=== PATIENT | female | born 1935 | race Caucasian/White ===

== ENCOUNTER → 2016-10-18 | Outpatient (CLI) | payer MEDICARE, BC, OTHER ==
[~2016-10-18] VITALS: Ht 160 cm; Wt 67.1 kg
[~2016-10-18] MED LIST: ATOR1TAB21 PO; BREO1INH3 INH; BYST10TA2 PO; CALC600T21 PO; ECOT81TA5 PO; FISH100049 PO; LIDOCAINE 2% INJ 100 MG/5 ML SDV (FOR ANES.) As Ordered ONE; NS 1,000 ML IV SCH; OSTETAB4 PO; PROPOFOL 500 MG/50 ML VIAL As Ordered ONE; SOMA350T PO; VITA2000 PO
--- NOTE | 2016-10-18 14:14 | ROOR ---
Patient Name: Earline Pulido Procedure Date: 10/18/2016 1:41 PM Date of : 1935 Age: 81 Room: [facility] Gender: Female Note Status: Finalized Procedure: Colonoscopy to Cecum + Cold Snare Polypectomies Indications: High risk colon cancer surveillance: Personal history of colonic polyps, Last colonoscopy: 2013 Providers: Trent Carbajal MD Referring MD: LUPE PERRY JR, MD Requesting Provider: Medicines: Monitored Anesthesia Care Complications: No immediate complications. Procedure: Pre-Anesthesia Assessment: - The heart rate, respiratory rate, oxygen saturations, blood pressure, adequacy of pulmonary ventilation, and response to care were monitored throughout the procedure. The Colonoscope was introduced through the anus and advanced to the cecum, identified by appendiceal orifice and ileocecal valve. The colonoscopy was performed without difficulty. The patient tolerated the procedure well. The quality of the bowel preparation was excellent. Findings: The perianal and digital rectal examinations were normal. Non-bleeding internal hemorrhoids were found during retroflexion. The hemorrhoids were small and Grade I (internal hemorrhoids that do not prolapse). Multiple small and large-mouthed diverticula were found in the recto-sigmoid colon, sigmoid colon and descending colon. A small polyp was found at 60 cm proximal to the anus. The polyp was sessile. The polyp was removed with a cold snare. Resection and retrieval were complete. A small polyp was found in the mid ascending colon. The polyp was sessile. The polyp was removed with a cold snare. Resection and retrieval were complete. Two sessile polyps were found in the proximal transverse colon. The polyps were small in size. These polyps were removed with a cold snare. Resection and retrieval were complete. The exam was otherwise without abnormality on direct and retroflexion views. Impression: - Non-bleeding internal hemorrhoids. - Diverticulosis in the recto-sigmoid colon, in the sigmoid colon and in the descending colon. - One small polyp at 60 cm proximal to the anus, removed with a cold snare. Resected and retrieved. - One small polyp in the mid ascending colon, removed with a cold snare. Resected and retrieved. - Two small polyps in the proximal transverse colon, removed with a cold snare. Resected and retrieved. - The examination was otherwise normal on direct and retroflexion views. - The exam was otherwise normal to the cecum. Recommendation: - Patient has a contact number available for emergencies. The signs and symptoms of potential delayed complications were discussed with the patient. Return to normal activities tomorrow. Written discharge instructions were provided to the patient. - High fiber diet. - Discharge patient to home. - Continue present medications. - Await pathology results. - Repeat colonoscopy for symptoms only. - Check Portal Online for Path Results.([email or web address]) - Return to referring physician. - The findings and recommendations were discussed with the patient's family. Trent Carbajal MD Trent Carbajal MD 10/18/2016 2:14:14 PM This report has been signed electronically. Number of Addenda: 0 Note Initiated On: 10/18/2016 1:41 PM Estimated Blood Loss: Estimated blood loss: none.
[2016-10-18 14:35] VITALS: BP 163/70
== END | disposition home or self-care (01) ==
LOC: M OPP 12:38
PROVIDERS: ATTEND Internal Medicine Gastroenterology
DX: Z12.11 Encounter for screening for malignant neoplasm of colon (principal); Z80.0 Family history of malignant neoplasm of digestive organs; K64.0 First degree hemorrhoids; K57.30 Diverticulosis of large intestine without perforation or abscess without bleeding; D12.4 Benign neoplasm of descending colon; D12.2 Benign neoplasm of ascending colon; D12.3 Benign neoplasm of transverse colon; I10 Essential (primary) hypertension; E78.5 Hyperlipidemia, unspecified; M19.90 Unspecified osteoarthritis, unspecified site; J45.909 Unspecified asthma, uncomplicated; Z87.891 Personal history of nicotine dependence; Z79.899 Other long term (current) drug therapy; Z88.8 Allergy status to other drugs, medicaments and biological substances; Z88.2 Allergy status to sulfonamides

== ENCOUNTER → 2016-10-31 | Outpatient (REF) | payer MEDICARE, OTHER ==
[~2016-10-31] MED LIST changes: -LIDOCAINE 2% INJ 100 MG/5 ML SDV (FOR ANES.) As Ordered ONE; -NS 1,000 ML IV SCH; -PROPOFOL 500 MG/50 ML VIAL As Ordered ONE
== END ==
LOC: M SFHCPLAZ 11:52
PROVIDERS: ATTEND Dermatology
DX: C44.41 Basal cell carcinoma of skin of scalp and neck (principal)
CPT/HCPCS: 11100; 88305; G0463

== ENCOUNTER → 2017-08-21 | Outpatient (CLI) | payer MEDICARE, BC, OTHER | LOC: M SMT 10:42 | DX: J45.30 Mild persistent asthma, uncomplicated (principal); R09.02 Hypoxemia | CPT/HCPCS: 71046 ==

== ENCOUNTER → 2017-08-29 | Outpatient (CLI) | payer MEDICARE, BC, OTHER | LOC: M WHC 09:16 | DX: Z12.31 Encounter for screening mammogram for malignant neoplasm of breast (principal); Z01.419 Encounter for gynecological examination (general) (routine) without abnormal findings (principal); R92.8 Other abnormal and inconclusive findings on diagnostic imaging of breast; Z80.41 Family history of malignant neoplasm of ovary | CPT/HCPCS: 76830 ==

== ENCOUNTER → 2017-09-03 | Outpatient (CLI) | payer MEDICARE, BC, OTHER | LOC: M RAD 15:58 | DX: N63.20 Unspecified lump in the left breast, unspecified quadrant (principal) | CPT/HCPCS: 77065 ==

== ENCOUNTER → 2017-09-05 | Outpatient (REF) | payer MEDICARE, OTHER | LOC: M LAB REF 17:51 | DX: C50.919 Malignant neoplasm of unspecified site of unspecified female breast (principal) | CPT/HCPCS: 88305 ==

== ENCOUNTER → 2017-09-17 | Outpatient (REF) | payer MEDICARE, OTHER ==
[2017-09-19 00:06] LABS: CA 27.29 13.3 U/mL (0.0-38.6)
== END ==
LOC: M LAB REF 13:32
DX: C50.919 Malignant neoplasm of unspecified site of unspecified female breast (principal)
CPT/HCPCS: 82378

== ENCOUNTER 2017-09-21 07:38 | Day surgery (SDC) | payer MEDICARE, BC, OTHER ==
[2017-09-21] MEDS: LIDOCAINE 5% (LIDODERM) PATCH TD (07:45)
[2017-09-21] MEDS: LIDOCAINE 1% SDV 5 ML VIAL SQ (07:45)
[2017-09-21] MEDS: LR 1,000 ML IV ×2 (10:30→15:15)
[2017-09-21] MEDS ORDERED: ONDANSETRON 4MG/2ML VIAL (J2405) As Ordered (10:48)
[2017-09-21] MEDS ORDERED: dexameTHASONE 4 MG/ML 1ML VIAL (J1100) As Ordered (10:48)
[2017-09-21] MEDS ORDERED: fentaNYL 250 MCG/5 ML INJECTION (J3010) As Ordered (10:48)
[2017-09-21] MEDS ORDERED: PROPOFOL 200 MG/20 ML VIAL As Ordered (10:48)
[2017-09-21] MEDS ORDERED: ROCURONIUM BROMIDE 50 MG/5 ML VIAL As Ordered (10:48)
[2017-09-21] MEDS ORDERED: LIDOCAINE 2% INJ 100 MG/5 ML SDV (FOR ANES.) As Ordered (10:48)
[2017-09-21] MEDS ORDERED: MIDAZOLAM INJ 2 MG/2 ML VIAL (J2250) As Ordered (10:49)
[2017-09-21] MEDS: METHYLENE BLUE 0.5% (5MG/ML) 10 ML AMP (PROVAYBLUE)(Q9968 PER 1MG) As Ordered (11:25)
[2017-09-21] MEDS ORDERED: ePHEDrine SULFATE 25 MG/5 ML(5MG/ML) SYRINGE As Ordered (11:53)
[2017-09-21] MEDS ORDERED: HYDROmorphone HCL 2 MG/ML 1ML VIAL (J1170) As Ordered (12:47)
[2017-09-21] MEDS ORDERED: GLYCOPYRROLATE INJ 0.2 MG/ML 2 ML VIAL As Ordered (12:54)
[2017-09-21] MEDS ORDERED: NEOSTIGMINE 10 MG/10 ML VIAL (J2710) As Ordered (12:54)
[2017-09-21] MEDS: BUPIVACAINE HCL 0.25% 30 ML VIAL As Ordered (14:20)
[2017-09-21] MEDS ORDERED: ONDANSETRON 4MG/2ML VIAL (J2405) IV (15:15)
[2017-09-21] MEDS ORDERED: fentaNYL 100 MCG/2 ML INJECTION (J3010) IV (15:15)
[2017-09-21] MEDS ORDERED: PERCOCET 5MG/325MG TAB PO (15:15)
[2017-09-21] MEDS ORDERED: HYDROmorphone HCL 1 MG/ML SYRINGE (J1170) IV (15:15)
[2017-09-21] MEDS ORDERED: PHENYLephrine HCL 500 MCG/5 ML (100MCG/ML) SYRINGE (J2370) As Ordered (17:49)
[2017-09-21] MEDS: ATORVASTATIN 20 MG TAB PO (20:37)
[2017-09-21] MEDS: NORCO, ANEXSIA 5/325MG TABLET (HYDROcodone/ACETAMINOPHEN) PO (20:37)
[2017-09-22] MEDS: NEBIVOLOL 5 MG TAB (BYSTOLIC) PO (09:25)
[2017-09-22] MEDS: ACETAMINOPHEN TAB 650MG DOSE (2X325MG) PO (11:12)
[2017-09-22] MEDS: ATORVASTATIN 20 MG TAB PO (20:06)
== END 2017-09-22 20:47 | disposition home or self-care (01) ==
LOC: M SDC 07:38 → M MSPAV 17:30
DX: C50.312 Malignant neoplasm of lower-inner quadrant of left female breast (principal); C77.3 Secondary and unspecified malignant neoplasm of axilla and upper limb lymph nodes; I10 Essential (primary) hypertension; E78.5 Hyperlipidemia, unspecified; J45.909 Unspecified asthma, uncomplicated; R01.1 Cardiac murmur, unspecified; R23.3 Spontaneous ecchymoses; M12.9 Arthropathy, unspecified; R29.898 Other symptoms and signs involving the musculoskeletal system; J44.9 Chronic obstructive pulmonary disease, unspecified; Z88.2 Allergy status to sulfonamides; Z88.8 Allergy status to other drugs, medicaments and biological substances; Z79.899 Other long term (current) drug therapy; Z79.82 Long term (current) use of aspirin; Z85.828 Personal history of other malignant neoplasm of skin; Z78.0 Asymptomatic menopausal state; Z96.1 Presence of intraocular lens; Z87.891 Personal history of nicotine dependence
CPT/HCPCS: 19301

== ENCOUNTER 2017-10-02 02:34 | Emergency (ER) | payer MEDICARE, BC, OTHER ==
[2017-10-02] MEDS: diphenhydrAMINE 50 MG CAP PO (03:56)
[2017-10-02] MEDS: predniSONE 20 MG TAB PO (03:57)
== END 2017-10-02 04:08 | disposition home or self-care (01) ==
LOC: M ED 02:34
DX: R21 Rash and other nonspecific skin eruption (principal); T50.995A Adverse effect of other drugs, medicaments and biological substances, initial encounter; X58.XXXA Exposure to other specified factors, initial encounter; Y92.89 Other specified places as the place of occurrence of the external cause; I10 Essential (primary) hypertension; E78.5 Hyperlipidemia, unspecified; Z85.3 Personal history of malignant neoplasm of breast; Z79.899 Other long term (current) drug therapy; Z79.82 Long term (current) use of aspirin; Z79.51 Long term (current) use of inhaled steroids; Z88.2 Allergy status to sulfonamides; Z88.8 Allergy status to other drugs, medicaments and biological substances
CPT/HCPCS: 99283

== ENCOUNTER → 2017-10-03 | Outpatient (CLI) | payer MEDICARE, BC, OTHER | LOC: M PLARAD 10:48 | DX: C50.812 Malignant neoplasm of overlapping sites of left female breast (principal) | CPT/HCPCS: 78815 ==

== ENCOUNTER 2017-10-04 10:14 | Emergency (ER) | payer MEDICARE, BC, OTHER ==
[2017-10-04] MEDS: FAMOTIDINE 20 MG TAB PO (11:06)
[2017-10-04] MEDS: GI COCKTAIL 50ML BTL(HYOSCYAMINE/MAALOX/LIDOCAINE VISCOUS)(1:3:1) PO (11:21)
== END 2017-10-04 11:36 | disposition home or self-care (01) ==
LOC: M ED 10:14
DX: T78.40XA Allergy, unspecified, initial encounter (principal); L50.9 Urticaria, unspecified; I10 Essential (primary) hypertension; J44.9 Chronic obstructive pulmonary disease, unspecified; Z98.890 Other specified postprocedural states; Z79.82 Long term (current) use of aspirin; Z79.899 Other long term (current) drug therapy; Z88.8 Allergy status to other drugs, medicaments and biological substances; Z88.2 Allergy status to sulfonamides
CPT/HCPCS: 99283

== ENCOUNTER → 2017-10-09 | Outpatient (CLI) | payer MEDICARE, BC, OTHER | LOC: M ONCR 14:15 | DX: C50.912 Malignant neoplasm of unspecified site of left female breast (principal) | CPT/HCPCS: G0463 ==

== ENCOUNTER 2017-10-18 09:59 | Outpatient (RCR) | payer MEDICARE, BC, OTHER | END 2017-11-12 | LOC: M ONCR 09:59 | DX: C50.312 Malignant neoplasm of lower-inner quadrant of left female breast (principal) | CPT/HCPCS: 77300 ==

== ENCOUNTER → 2017-11-05 | Outpatient (CLI) | payer MEDICARE, BC, OTHER ==
[2017-11-05 09:23] LABS: HEMATOCRIT 43.4 % (36.0-47.0); HEMOGLOBIN 13.3 g/dl (12.0-15.5); MEAN CORPUSCULAR HGB CONC 30.6 g/dl (32.0-36.5); PLATELET COUNT, AUTOMATED 185 10^3/uL (150-450); RED BLOOD COUNT 4.43 10^6/uL (4.00-5.40); RED CELL DISTRIBUTION WIDTH 14.9 % (11.5-14.5); WHITE BLOOD COUNT 8.3 10^3/uL (4.0-10.0)
== END ==
LOC: M LAB 09:01
DX: C50.919 Malignant neoplasm of unspecified site of unspecified female breast (principal)
CPT/HCPCS: 85027

== ENCOUNTER 2017-11-13 09:13 | Outpatient (RCR) | payer MEDICARE, BC, OTHER | END 2017-12-13 | LOC: M ONCR 09:13 | DX: C50.312 Malignant neoplasm of lower-inner quadrant of left female breast (principal) | CPT/HCPCS: 77300 ==

== ENCOUNTER → 2018-02-20 | Outpatient (CLI) | payer MEDICARE, BC, OTHER | LOC: M ONCR 15:04 | DX: C50.312 Malignant neoplasm of lower-inner quadrant of left female breast (principal) | CPT/HCPCS: G0463 ==

== ENCOUNTER → 2018-08-28 | Outpatient (CLI) | payer MEDICARE, BC, OTHER ==
[~2018-08-28] MED LIST changes: +ANAS1TAB2 PO; +BENA25CA4 PO; -CALC600T21 PO; +CALC600T60 PO; +NORC1TAB4 PO; +PEPC1TAB5 PO; +PRED20TA PO; +TAMO20TA8 PO; +TIZA2CAP PO; +VITA400C67 PO
--- NOTE | 2018-08-31 10:21 | RADONC ---
RADIATION ONCOLOGY FOLLOWUP NOTE DATE: 08/28/2018 CHART NUMBER: [id number] DIAGNOSIS: Left breast cancer. STAGE: Stage I A, [id number]. ECOG performance status 0. FOLLOWUP NOTE: Mrs. 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 She presents today for routine followup visit after having completed her radiotherapy on 12/13/2017. She did well with the radiotherapy and returns today with no specific complaints. REVIEW OF SYSTEMS: She specifically denies nausea, vomiting, coughing, sputum production or hemoptysis. Her energy level is such that she is able to maintain most day-to-day activities without any alteration of her lifestyle. She denies any skin irritation for chest pain. She also denies headaches, fevers, chills, night sweats, diplopia, anxiety or depression, weight loss or visual disturbances. EXAMINATION FINDINGS: The skin within the irradiated volume shows no significant changes. The left chest area is palpated and is without palpable masses. There are no masses palpable in the right breast. Lymphatics: No palpable lymphadenopathy is appreciated. Lungs: Clear to auscultation percussion. Heart: Regular without murmurs. Abdomen: Without evidence of hepatomegaly, masses, deep abdominal tenderness. Extremities: Without cyanosis, clubbing or edema. Neurologic: Examination grossly physiologic. IMPRESSION: Clinically FRANSISCO. PLAN: Return to clinic in approximately 6 months, and she was advised to return to her referring physicians for her already scheduled mammograms and followup visits.
== END ==
LOC: M ONCR 14:22
PROVIDERS: ATTEND Radiology Radiation Oncology
DX: Z08 Encounter for follow-up examination after completed treatment for malignant neoplasm (principal); Z85.3 Personal history of malignant neoplasm of breast; Z92.3 Personal history of irradiation

== ENCOUNTER → 2018-08-30 | Outpatient (CLI) | payer MEDICARE, BC, OTHER ==
--- NOTE | 2018-08-30 12:42 | REPMRS ---
Patient History The patient states she had a clinical breast exam in 09/03 Patient is postmenopausal, has history of cancer in the left breast at age 82, has history of skin cancer at age 64, had previous chemotherapy at age 2, and is nulliparous. Family history of ovarian cancer in sister, breast cancer under age 50 in niece, prostate cancer in brother, colorectal cancer at age 50 or over in niece. Malignant ultrasound-guided core biopsy of the left breast, September 05, 2017. Radiation therapy of the left breast, 2018. 3 benign cyst aspirations of the left breast. 3D TOMOSYNTHESIS WAS PERFORMED. Digital Woman Screen Mammo: August 30, 2018 - Exam #: [id number] Bilateral CC and MLO view(s) were taken. Technologist: Ana Kuo, Technologist Prior study comparison: September 03, 2017, left breast digital mammo diagnostic unilateral, performed at [facility]. August 29, 2017, digital woman screen mammo performed at [facility]. FINDINGS: The breast tissue is heterogeneously dense. This may lower the sensitivity of mammography. There has been no change in the appearance of the mammogram from the prior studies. There is a moderate amount of residual fibroglandular tissue which is fairly symmetric. There is no interval development of dominant mass, areas of architectural distortion, or clustered microcalcification typical of malignancy. Assessment: BI-RADS/ACR category 1 mammogram. Negative Mammogram. Recommendation Routine screening mammogram in 1 year (for women over age 40). This mammogram was interpreted with the aid of an FDA-approved computer-aided dectection system. Electronically Signed By: Michael Coyne MD 08/30/18 [id number]
== END ==
LOC: M WHC 10:12
PROVIDERS: ATTEND Nurse Practitioner Women's Health
DX: Z01.419 Encounter for gynecological examination (general) (routine) without abnormal findings (principal); Z12.31 Encounter for screening mammogram for malignant neoplasm of breast; Z78.0 Asymptomatic menopausal state; Z85.3 Personal history of malignant neoplasm of breast; Z92.3 Personal history of irradiation; Z80.41 Family history of malignant neoplasm of ovary; Z90.12 Acquired absence of left breast and nipple
CPT/HCPCS: 77063; 77067; G0101

== ENCOUNTER → 2019-04-02 | Outpatient (CLI) | payer MEDICARE, BC, OTHER ==
[~2019-04-02] MED LIST changes: -NORC1TAB4 PO; +NORC1TAB7 PO
--- NOTE | 2019-04-03 11:01 | RADONC ---
RADIATION ONCOLOGY FOLLOWUP NOTE DATE: 04/02/2019 CHART #: [id number] DIAGNOSIS: Left breast cancer. STAGE: I A, [id number]. ECOG PERFORMANCE STATUS: 0. FOLLOWUP NOTE: Ms. 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 The patient presents today reporting that she is doing quite well with no complaints at this time related to her radiation therapy or disease. She has no breast or bone pain. REVIEW OF SYSTEMS: The patient's review of systems is noncontributory. Denies nausea, vomiting, fevers, chills, night sweats, diplopia, headaches, anxiety or depression, anorexia, weight loss, visual disturbances, chest pain, urinary or bowel difficulties, bone pain, or neurological problems. PHYSICAL EXAMINATION: The patient is a well-developed, well-nourished female in no acute distress. HEENT exam is normocephalic, atraumatic. Extraocular movements are intact. There is no palpable cervical, supraclavicular, infraclavicular, axillary, or inguinal lymphadenopathy present. Lungs are clear to auscultation and percussion. Heart has a regular rate and rhythm. Abdomen is benign with no hepatosplenomegaly, masses, or tenderness. Breast examination reveals no masses or discharge bilaterally. Skeletal examination reveals no tenderness to pressure or percussion of the bony skeleton. Extremities reveal no clubbing, cyanosis, or edema. Neurologic exam is grossly intact, as is the remainder of the physical examination. ASSESSMENT: The patient is clinically FRANSISCO at this time. She is being followed and managed closely by her medical oncologist and other physicians and is therefore being discharged from our followup except on a p.r.n. basis. cc: Frantz Mahoney Jr, MD Robert Kimball, MD Sara McGee, MD
== END ==
LOC: M ONCR 08:48
PROVIDERS: ATTEND Radiology Radiation Oncology
DX: C50.312 Malignant neoplasm of lower-inner quadrant of left female breast (principal)

== ENCOUNTER → 2019-08-11 | Outpatient (CLI) | payer MEDICARE, BC, OTHER ==
[~2019-08-11] MED LIST changes: +ASPI325T57 PO; +MAXI1000 PO
--- NOTE | 2019-08-11 17:07 | REP ---
PA and lateral chest: Comparison is 08/21/2017. The larger left upper lobe infiltrate on the comparison study has resolved. There are no focal infiltrates on the current study. There are no pleural effusions. There is cardiomegaly, unchanged. There is diffuse interstitial coarsening, unchanged, compatible with chronic lung disease. The rona and mediastinum are unremarkable. There is a left shoulder arthroplasty, unchanged. Impression: There are no acute cardiopulmonary findings. There is chronic cardiomegaly and there is chronic interstitial coarsening. The previous left upper lobe infiltrate has resolved. Electronically Signed by Michael Jensen MD 08/11/2019 04:57 P
== END ==
LOC: M WUC 14:08
PROVIDERS: ATTEND Internal Medicine
DX: R50.9 Fever, unspecified (principal); R05 Cough; I51.7 Cardiomegaly; Z96.612 Presence of left artificial shoulder joint; J98.4 Other disorders of lung

== ENCOUNTER 2019-08-14 11:09 | Inpatient (IN) | payer MEDICARE, BC, OTHER ==
[~2019-08-14] VITALS: Ht 160 cm; Wt 63.8 kg
[2019-08-14] MEDS ORDERED: CIPR-249 PO (11:38)
--- NOTE | 2019-08-14 11:58 | REP ---
Portable chest, 11:29 a.m., single AP view with the patient upright: Comparison is 08/11/2019. The previous left upper lobe infiltrate has resolved. There is new opacification of the right costophrenic angle compatible with effusion/infiltrate/combination. Left lung is clear. Cardiac size is enlarged, unchanged. The rona, mediastinum, and skeletal structures are unremarkable except for a left shoulder arthroplasty, unchanged. Impression: New opacification of the right costophrenic angle. The previous right upper lobe infiltrate has resolved. Electronically Signed by Michael Jensen MD 08/14/2019 11:50 A
[2019-08-14 12:00] LABS: VENOUS BASE EXCESS 12.7 (-2.0-2.0); VENOUS HCO3 43.5 MEQ/L (23.0-27.0); VENOUS O2 SATURATION 48.8 % (60.0-80.0); VENOUS PARTIAL PRESSURE CO2 89.4 mmHg (38.0-50.0); VENOUS PARTIAL PRESSURE O2 25.7 mmHg (30.0-50.0); VENOUS PH 7.305 UNITS (7.330-7.430); VENOUS STANDARD HCO3 35.1 MEQ/L; VENOUS TOTAL CO2 46.2 MEQ/L (24.0-28.0)
[2019-08-14 12:09] LABS: BASO % 0.2 % (0.0-1.0); EOS % 0.1 % (0.0-3.0); HEMATOCRIT 46.9 % (36.0-47.0); HEMOGLOBIN 13.8 g/dl (12.0-15.5); LYMPH % 9.9 % (24.0-44.0); MEAN CORPUSCULAR HEMOGLOBIN 31.2 pg (27.0-33.0); MEAN CORPUSCULAR HGB CONC 29.4 g/dl (32.0-36.5); MEAN CORPUSCULAR VOLUME 105.9 fl (80.0-96.0); MONO # 1.1 10^3/uL (0.0-0.8); MONO % 10.8 % (0.0-5.0); NEUTROPHILS # 7.8 10^3/uL (1.5-8.5); NEUTROPHILS % 77.7 % (36.0-66.0); PLATELET COUNT, AUTOMATED 171 10^3/uL (150-450); RED BLOOD COUNT 4.43 10^6/uL (4.00-5.40)
[2019-08-14] MEDS ORDERED: cefTRIAXone SOD 2 GM in D5W MINI-BAG PLUS 50 ML IV ONE (12:15)
[2019-08-14 12:24] LABS: INR 1.04; PROTHROMBIN TIME 13.3 SECONDS (11.8-14.0)
[2019-08-14] MEDS ORDERED: TYLE650T38 PO (12:24)
[2019-08-14] MEDS ORDERED: PROAAER10 INH (12:24)
[2019-08-14] MEDS ORDERED: VITA100054 PO (12:24)
[2019-08-14 12:48] LABS: ALBUMIN 2.9 GM/DL (3.2-5.2); ALT/SGPT 41 U/L (12-78); BILIRUBIN,DIRECT 0.2 MG/DL (0.0-0.2); BILIRUBIN,TOTAL 0.4 MG/DL (0.2-1.0); BLOOD UREA NITROGEN 29 MG/DL (7-18); CALCIUM LEVEL 8.7 MG/DL (8.8-10.2); CARBON DIOXIDE LEVEL 40 MEQ/L (21-32); CHLORIDE LEVEL 102 MEQ/L (98-107); CK-MB VALUE MASS < 1.0 NG/ML (<3.6); CPK CREATINE PHOSPHOKINASE 57 U/L (26-192); CREATININE FOR GFR 1.04 MG/DL (0.55-1.30); GLOMERULAR FILTRATION RATE 53.7 (>32); GLUCOSE, FASTING 91 MG/DL (70-100); MB/CK RELATIVE INDEX 1.75 (< OR =4); NT-PRO BNP 5042 PG/ML (<450); SODIUM LEVEL 143 MEQ/L (136-145); THYROXINE (T4) 7.3 UG/DL (4.5-12.0); TOTAL PROTEIN 6.1 GM/DL (6.4-8.2); TROPONIN I < 0.02 NG/ML (< 0.10)
[2019-08-14] MEDS ORDERED: methylPREDNISolone INJ 125 MG/2 ML VIAL (J2930) IV ONE (14:30)
[2019-08-14] MEDS: IPRATROPIUM 0.5MG/ALBUTEROL 2.5MG INH SOL UD 3ML (DUONEB)(J7620) NEB SCH ×3 (14:41→15:26)
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
[2019-08-14 15:00] VITALS: BP 133/78
[2019-08-14] MEDS ORDERED: ALBUTEROL SULFATE 2.5 MG/0.5 ML INH NEB SOLN NEB PRN (16:00)
[2019-08-14] MEDS: AZITHROMYCIN INJ 500 MG, VIAL MATE ADAPTER 1 EACH in D5W 250 ML IV SCH (16:40)
[2019-08-14] MEDS: IPRATROPIUM 0.5MG/ALBUTEROL 2.5MG INH SOL UD 3ML (DUONEB)(J7620) INH SCH ×2 (20:32→23:56)
[2019-08-14] MEDS: methylPREDNISolone INJ 125 MG/2 ML VIAL (J2930) IV SCH (21:34)
[2019-08-14] MEDS: HEPARIN SOD (PORCINE) 5000 UNITS/ML VIAL (J1644 PER 1000UNITS) SC SCH (21:35)
[2019-08-14 22:00] VITALS: BP 131/69
[2019-08-14 23:56] VITALS: O2SAT 96
[2019-08-15 02:58] VITALS: O2SAT 95
[2019-08-15] MEDS: IPRATROPIUM 0.5MG/ALBUTEROL 2.5MG INH SOL UD 3ML (DUONEB)(J7620) INH SCH ×5 (02:58→19:33)
[2019-08-15] MEDS: methylPREDNISolone INJ 125 MG/2 ML VIAL (J2930) IV SCH ×3 (05:39→21:10)
[2019-08-15 06:00] VITALS: BP 145/65
[2019-08-15 06:30] LABS: MEAN CORPUSCULAR HEMOGLOBIN 32.2 pg (27.0-33.0); PLATELET COUNT, AUTOMATED 146 10^3/uL (150-450); RED BLOOD COUNT 4.04 10^6/uL (4.00-5.40)
[2019-08-15 06:58] LABS: CALCIUM LEVEL 8.4 MG/DL (8.8-10.2); CREATININE FOR GFR 1.03 MG/DL (0.55-1.30); GLOMERULAR FILTRATION RATE 54.3 (>32); MAGNESIUM LEVEL 2.4 MG/DL (1.8-2.4); POTASSIUM SERUM 4.5 MEQ/L (3.5-5.1)
[2019-08-15] MEDS: HEPARIN SOD (PORCINE) 5000 UNITS/ML VIAL (J1644 PER 1000UNITS) SC SCH ×2 (08:42→21:11)
[2019-08-15] MEDS: SYMBICORT 160/4.5MCG INHALER 6GM INH SCH ×2 (12:36→19:33)
[2019-08-15] MEDS ORDERED: ACETAMINOPHEN 650MG ER TAB (TYLENOL ARTHRITIS) PO PRN (12:45)
--- NOTE | 2019-08-15 13:17 | ECGEPIP ---
[facility] - ED Test Date: 2019-08-14 Pat Name: TAURUS LAI Department: Room: - Gender: Female Abalone Sheller: : 1935 Requested By: Alexa Cedeño Order Number: [id number] Reading MD: Alexa Cedeño Measurements Intervals [place] Rate: 63 P: 73 DE: 146 QRS: 23 QRSD: 86 T: 24 QT: 383 QTc: 393 Interpretive Statements SINUS RHYTHM POSSIBLE RIGHT VENTRICULAR CONDUCTION DELAY NO PRIOR Electronically Signed on 08-15-2019 13:17:10 EST by Alexa Cedeño
[2019-08-15] MEDS: cefTRIAXone SOD 1 GM in D5W MINI-BAG PLUS 50 ML IV SCH (13:43)
[2019-08-15 14:00] VITALS: BP 136/72
[2019-08-15] MEDS: ASPIRIN 325 MG TAB PO SCH (15:00)
[2019-08-15] MEDS: VITAMIN D 1,000 INTERNATIONAL UNITS TABLET PO SCH (15:01)
[2019-08-15] MEDS: TAMOXIFEN CITRATE 10 MG TAB PO SCH (15:01)
--- NOTE | 2019-08-15 15:09 | IPNPDOC ---
Text Note Date of Service The patient was seen on 08/15/19. NOTE Subjective: Patient stated that she was feeling better today, her breathing i mproved. She still requires 3 oxygen via nasal cannula Objective: VITAL SIGNS: Please see below. GENERAL APPEARANCE: Well-nourished, well-developed, not in apparent distress HEENT: Normocephalic, atraumatic. Mucous members moist and pink CARDIOVASCULAR: Regular rate and rhythm. No murmurs, rubs or gallops. Radial pulses are intact. There is no lower extremity edema LUNGS: Diminished lung sounds ABDOMEN: Abdomen is soft and nontender. MUSCULOSKELETAL: Range of motion is intact in all 4 extremities NEUROLOGICAL: Cranial nerves II-12 are grossly intact. Speech is not dysarthric Assessment/Plan Patient is 83 years old female with past history of hypertension, hyperlipidemia, breast cancer presented hospital with increased shortness of breath. Patient stated that for past 7 days she has been having increased cough and increased shortness of breath on exertion. She stated that her sputum became yellowish. In emergency room patient was found to have acute hypoxemic respiratory failure with oxygenation of 73%, she's been placed on oxygen 3 L via nasal cannula. Problems (1) Pneumonia Community acquired pneumonia Azithromycin IV, ceftriaxone IV Incentive spirometry Steroids IV Inhalers (2) Acute hypoxemic respiratory failure Secondary to community acquired pneumonia On admission oxygen saturation 73% Continue oxygen treatment (3) Hypertension Continue home meds VS,Fishbone, I+O VS, Fishbone, I+O Laboratory Tests 08/15/19 06:05 08/15/19 06:06 Vital Signs Date Time Temp Pulse Resp B/P (MAP) Pulse Ox O2 Delivery O2 Flow Rate FiO2 08/15/19 14:00 98.0 80 20 136/72 (93) 90 Nasal Cannula 2.0 I&O- Last 24 Hours up to 6 AM 08/15/19 06:00 Intake Total 350 ml Output Total 400 ml Balance -50 ml FAITH AVILEZ DO Aug 15, 2019 15:09
[2019-08-15] MEDS: AZITHROMYCIN INJ 500 MG, VIAL MATE ADAPTER 1 EACH in D5W 250 ML IV SCH (15:54)
[2019-08-15] MEDS: NEBIVOLOL 5 MG TAB (BYSTOLIC) PO SCH (15:55)
[2019-08-15] MEDS: VITAMIN E 400 INTERNATIONAL UNITS CAP PO SCH (15:55)
[2019-08-15 19:35] VITALS: O2SAT 95
[2019-08-15] MEDS: ATORVASTATIN 20 MG TAB PO SCH (21:11)
[2019-08-15 22:00] VITALS: BP 135/52
[2019-08-16 00:41] VITALS: O2SAT 98
[2019-08-16] MEDS: IPRATROPIUM 0.5MG/ALBUTEROL 2.5MG INH SOL UD 3ML (DUONEB)(J7620) INH SCH ×7 (00:41→23:25)
[2019-08-16 03:26] VITALS: O2SAT 95
[2019-08-16] MEDS: methylPREDNISolone INJ 125 MG/2 ML VIAL (J2930) IV SCH (05:47)
[2019-08-16 06:00] VITALS: BP 137/56
[2019-08-16] MEDS: HEPARIN SOD (PORCINE) 5000 UNITS/ML VIAL (J1644 PER 1000UNITS) SC SCH ×2 (08:18→20:56)
[2019-08-16] MEDS: NEBIVOLOL 5 MG TAB (BYSTOLIC) PO SCH (08:19)
[2019-08-16] MEDS: TAMOXIFEN CITRATE 10 MG TAB PO SCH (08:19)
[2019-08-16] MEDS: ASPIRIN 325 MG TAB PO SCH (08:19)
[2019-08-16] MEDS: VITAMIN E 400 INTERNATIONAL UNITS CAP PO SCH (08:19)
[2019-08-16] MEDS: VITAMIN D 1,000 INTERNATIONAL UNITS TABLET PO SCH (08:19)
[2019-08-16] MEDS: SYMBICORT 160/4.5MCG INHALER 6GM INH SCH ×2 (09:00→20:08)
[2019-08-16 10:37] LABS: HEMATOCRIT 42.6 % (36.0-47.0); HEMOGLOBIN 13.3 g/dl (12.0-15.5); MEAN CORPUSCULAR HEMOGLOBIN 31.9 pg (27.0-33.0); MEAN CORPUSCULAR HGB CONC 31.2 g/dl (32.0-36.5); MEAN CORPUSCULAR VOLUME 102.2 fl (80.0-96.0); PLATELET COUNT, AUTOMATED 177 10^3/uL (150-450); RED BLOOD COUNT 4.17 10^6/uL (4.00-5.40); WHITE BLOOD COUNT 11.9 10^3/uL (4.0-10.0)
[2019-08-16 11:00] LABS: CALCIUM LEVEL 8.2 MG/DL (8.8-10.2); CREATININE FOR GFR 1.17 MG/DL (0.55-1.30); GLOMERULAR FILTRATION RATE 46.9 (>32); POTASSIUM SERUM 5.3 MEQ/L (3.5-5.1)
[2019-08-16] MEDS ORDERED: DEXTROSE 50% 50 ML SYRINGE IV PRN (11:15)
[2019-08-16] MEDS ORDERED: GLUCOSE 4 GM CHEW TABLET PO PRN (11:15)
[2019-08-16] MEDS ORDERED: GLUCAGON FOR INJ 1 MG VIAL (J1610) SC PRN (11:15)
[2019-08-16] MEDS ORDERED: SODIUM CHLORIDE 0.9% 1000ML IV SCH (11:30)
[2019-08-16] MEDS ORDERED: CALCIUM GLUCONATE 1,000 MG in D5W MINI-BAG PLUS 100 ML IV ONE (11:30)
[2019-08-16] MEDS ORDERED: FUROSEMIDE 20 MG/2 ML VIAL (J1940) IV ONE (11:30)
[2019-08-16] MEDS: HumaLOG INSULIN (NovoLOG) PER UNIT SC SCH ×3 (11:55→20:56)
[2019-08-16 12:13] LABS: CALCIUM LEVEL 8.5 MG/DL (8.8-10.2); CREATININE FOR GFR 1.14 MG/DL (0.55-1.30); GLOMERULAR FILTRATION RATE 48.3 (>32); POTASSIUM SERUM 4.6 MEQ/L (3.5-5.1)
[2019-08-16] MEDS: cefTRIAXone SOD 1 GM in D5W MINI-BAG PLUS 50 ML IV SCH (13:17)
[2019-08-16 14:00] VITALS: BP 132/60
--- NOTE | 2019-08-16 14:25 | IPNPDOC ---
Text Note Date of Service The patient was seen on 08/16/19. NOTE Subjective: Patient stated that she was feeling better today, her breathing im proved. No any acute events overnight Objective: VITAL SIGNS: Please see below. GENERAL APPEARANCE: Well-nourished, well-developed, not in apparent distress HEENT: Normocephalic, atraumatic. Mucous members moist and pink CARDIOVASCULAR: Regular rate and rhythm. No murmurs, rubs or gallops. Radial pulses are intact. There is no lower extremity edema LUNGS: Diminished lung sounds ABDOMEN: Abdomen is soft and nontender. MUSCULOSKELETAL: Range of motion is intact in all 4 extremities NEUROLOGICAL: Cranial nerves II-12 are grossly intact. Speech is not dysarthric Assessment/Plan Patient is 83 years old female with past history of hypertension, hyperlipidemia, breast cancer presented hospital with increased shortness of breath. Patient stated that for past 7 days she has been having increased cough and increased shortness of breath on exertion. She stated that her sputum became yellowish. In emergency room patient was found to have acute hypoxemic respiratory failure with oxygenation of 73%, she's been placed on oxygen 3 L via nasal cannula. Problems Pneumonia Community acquired pneumonia Azithromycin IV, ceftriaxone IV Incentive spirometry I changed steroids IV to by mouth Inhalers Acute hypoxemic respiratory failure Secondary to community acquired pneumonia On admission oxygen saturation 73% Continue oxygen treatment Hypertension Continue home meds Hyperglycemia Secondary to IV steroids Insulin sliding scale Hyperkalemia EKG Continue gluconate Furosemide IV VS,Fishbone, I+O VS, Fishbone, I+O Laboratory Tests 08/16/19 10:18 08/16/19 11:31 Vital Signs Date Time Temp Pulse Resp B/P (MAP) Pulse Ox O2 Delivery O2 Flow Rate FiO2 08/16/19 09:00 2.0 08/16/19 08:19 72 138/67 08/16/19 06:00 97.6 16 96 Nasal Cannula I&O- Last 24 Hours up to 6 AM 08/16/19 06:00 Intake Total 480 ml Output Total 1725 ml Balance -1245 ml FAITH AVILEZ DO Aug 16, 2019 14:25
[2019-08-16 16:28] LABS: CALCIUM LEVEL 8.4 MG/DL (8.8-10.2); CREATININE FOR GFR 1.27 MG/DL (0.55-1.30); GLOMERULAR FILTRATION RATE 42.7 (>32); POTASSIUM SERUM 4.2 MEQ/L (3.5-5.1)
[2019-08-16] MEDS: FUROSEMIDE 20 MG TAB PO SCH (16:36)
[2019-08-16] MEDS: AZITHROMYCIN INJ 500 MG, VIAL MATE ADAPTER 1 EACH in D5W 250 ML IV SCH (16:36)
[2019-08-16 20:24] LABS: CALCIUM LEVEL 8.4 MG/DL (8.8-10.2); CREATININE FOR GFR 1.5 MG/DL (0.55-1.30); GLOMERULAR FILTRATION RATE 35.2 (>32); POTASSIUM SERUM 3.9 MEQ/L (3.5-5.1)
[2019-08-16] MEDS: ATORVASTATIN 20 MG TAB PO SCH (20:55)
[2019-08-16 22:00] VITALS: BP 137/64
[2019-08-16 23:15] LABS: CALCIUM LEVEL 8.9 MG/DL (8.8-10.2); CREATININE FOR GFR 1.5 MG/DL (0.55-1.30); GLOMERULAR FILTRATION RATE 35.2 (>32)
[2019-08-17 03:14] LABS: CALCIUM LEVEL 8.1 MG/DL (8.8-10.2); CREATININE FOR GFR 1.31 MG/DL (0.55-1.30); GLOMERULAR FILTRATION RATE 41.2 (>32)
[2019-08-17] MEDS: IPRATROPIUM 0.5MG/ALBUTEROL 2.5MG INH SOL UD 3ML (DUONEB)(J7620) INH SCH ×5 (04:54→21:48)
[2019-08-17 06:00] VITALS: BP 139/65
[2019-08-17] MEDS: HumaLOG INSULIN (NovoLOG) PER UNIT SC SCH ×4 (07:30→20:31)
[2019-08-17] MEDS: SYMBICORT 160/4.5MCG INHALER 6GM INH SCH ×2 (07:48→21:00)
[2019-08-17 08:21] LABS: CALCIUM LEVEL 8.5 MG/DL (8.8-10.2); CREATININE FOR GFR 1.25 MG/DL (0.55-1.30); GLOMERULAR FILTRATION RATE 43.5 (>32); POTASSIUM SERUM 4.2 MEQ/L (3.5-5.1)
[2019-08-17 08:26] LABS: HEMATOCRIT 45.1 % (36.0-47.0); HEMOGLOBIN 13.9 g/dl (12.0-15.5); MEAN CORPUSCULAR HEMOGLOBIN 31.4 pg (27.0-33.0); MEAN CORPUSCULAR HGB CONC 30.8 g/dl (32.0-36.5); MEAN CORPUSCULAR VOLUME 101.8 fl (80.0-96.0); PLATELET COUNT, AUTOMATED 182 10^3/uL (150-450); RED BLOOD COUNT 4.43 10^6/uL (4.00-5.40); WHITE BLOOD COUNT 10.9 10^3/uL (4.0-10.0)
[2019-08-17] MEDS: VITAMIN D 1,000 INTERNATIONAL UNITS TABLET PO SCH (09:22)
[2019-08-17] MEDS: predniSONE 20 MG TAB PO SCH (09:22)
[2019-08-17] MEDS: ASPIRIN 325 MG TAB PO SCH (09:23)
[2019-08-17] MEDS: FUROSEMIDE 20 MG TAB PO SCH ×2 (09:23→16:56)
[2019-08-17] MEDS: VITAMIN E 400 INTERNATIONAL UNITS CAP PO SCH (09:23)
[2019-08-17] MEDS: NEBIVOLOL 5 MG TAB (BYSTOLIC) PO SCH (09:25)
[2019-08-17] MEDS: HEPARIN SOD (PORCINE) 5000 UNITS/ML VIAL (J1644 PER 1000UNITS) SC SCH ×2 (09:26→20:44)
[2019-08-17] MEDS: TAMOXIFEN CITRATE 10 MG TAB PO SCH (09:26)
[2019-08-17] MEDS: cefTRIAXone SOD 1 GM in D5W MINI-BAG PLUS 50 ML IV SCH (13:45)
--- NOTE | 2019-08-17 13:52 | IPNPDOC ---
Text Note Date of Service The patient was seen on 08/17/19. NOTE Subjective: Patient continues to improve, less oxygen requirements. In the mor julian she was able to breathe wo supplemental oxygen. No any acute events overnight Objective: VITAL SIGNS: Please see below. GENERAL APPEARANCE: Well-nourished, well-developed, not in apparent distress HEENT: Normocephalic, atraumatic. Mucous members moist and pink CARDIOVASCULAR: Regular rate and rhythm. No murmurs, rubs or gallops. Radial pulses are intact. There is no lower extremity edema LUNGS: Diminished lung sounds ABDOMEN: Abdomen is soft and nontender. MUSCULOSKELETAL: Range of motion is intact in all 4 extremities NEUROLOGICAL: Cranial nerves II-12 are grossly intact. Speech is not dysarthric Assessment/Plan Patient is 83 years old female with past history of hypertension, h yperlipidemia, breast cancer presented hospital with increased shortness of breath. Patient stated that for past 7 days she has been having increased cough and increased shortness of breath on exertion. She stated that her sputum became yellowish. In emergency room patient was found to have acute hypoxemic respiratory failure with oxygenation of 73%, she's been placed on oxygen 3 L via nasal cannula. Patient received treatment with antibiotics with positive effect. Await PT OT clearance. Problems Pneumonia Community acquired pneumonia Azithromycin IV, ceftriaxone IV Incentive spirometry I changed steroids IV to by mouth Inhalers Acute hypoxemic respiratory failure Resolved Secondary to community acquired pneumonia On admission oxygen saturation 73% Hypertension Continue home meds Hyperglycemia Secondary to IV steroids Insulin sliding scale Hyperkalemia Resolved VS,Fishbone, I+O VS, Fishbone, I+O Laboratory Tests 08/16/19 15:44 08/16/19 19:23 08/16/19 22:43 08/17/19 02:43 08/17/19 07:18 08/17/19 07:19 Vital Signs Date Time Temp Pulse Resp B/P (MAP) Pulse Ox O2 Delivery O2 Flow Rate FiO2 08/17/19 09:25 83 133/48 08/17/19 06:00 97.6 20 95 Nasal Cannula 2.0 I&O- Last 24 Hours up to 6 AM 08/17/19 06:00 Intake Total 1200 ml Output Total 3400 ml Balance -2200 ml FAITH AVILEZ DO Aug 17, 2019 13:52
[2019-08-17 14:00] VITALS: BP 159/61
[2019-08-17] MEDS: AZITHROMYCIN INJ 500 MG, VIAL MATE ADAPTER 1 EACH in D5W 250 ML IV SCH (15:08)
[2019-08-17] MEDS: ATORVASTATIN 20 MG TAB PO SCH (20:43)
[2019-08-17 22:00] VITALS: BP 130/94
[2019-08-18] MEDS: IPRATROPIUM 0.5MG/ALBUTEROL 2.5MG INH SOL UD 3ML (DUONEB)(J7620) INH SCH ×7 (00:12→23:27)
[2019-08-18 06:00] VITALS: BP 116/82
[2019-08-18] MEDS: HumaLOG INSULIN (NovoLOG) PER UNIT SC SCH ×4 (07:30→21:00)
[2019-08-18] MEDS: SYMBICORT 160/4.5MCG INHALER 6GM INH SCH ×2 (07:56→21:00)
[2019-08-18] MEDS: ASPIRIN 325 MG TAB PO SCH (08:58)
[2019-08-18] MEDS: predniSONE 20 MG TAB PO SCH (08:58)
[2019-08-18] MEDS: VITAMIN D 1,000 INTERNATIONAL UNITS TABLET PO SCH (08:59)
[2019-08-18] MEDS: NEBIVOLOL 5 MG TAB (BYSTOLIC) PO SCH (08:59)
[2019-08-18] MEDS: VITAMIN E 400 INTERNATIONAL UNITS CAP PO SCH (08:59)
[2019-08-18] MEDS: FUROSEMIDE 20 MG TAB PO SCH ×2 (08:59→16:51)
[2019-08-18] MEDS: HEPARIN SOD (PORCINE) 5000 UNITS/ML VIAL (J1644 PER 1000UNITS) SC SCH ×2 (09:00→21:50)
[2019-08-18] MEDS: TAMOXIFEN CITRATE 10 MG TAB PO SCH (09:00)
[2019-08-18] MEDS ORDERED: CETIRIZINE (ZyrTEC) 10 MG TAB PO ONE (10:00)
[2019-08-18] MEDS: guaiFENesin ER 600 MG TAB PO SCH ×2 (10:52→21:50)
[2019-08-18] MEDS: LevoFLOXacin 750 MG TABLET PO SCH (10:52)
--- NOTE | 2019-08-18 11:07 | IPN ---
DATE OF SERVICE: 08/18/2019 Patient complains of nasal congestion, feeling full, as well as some postnasal drip. She tries to cough, but it still dry and congested. No fevers or chills overnight. Shortness of breath is at baseline. Still complains of weakness. Needs 2-3 more days of physical therapy. Vital signs: Temperature 98.7, pulse 74, respiratory rate 18, blood pressure 124/79, 97% on 2 liters nasal cannula. General: Awake, alert, and oriented times three, answering questions appropriately. No use of respiratory accessory muscle. Currently with 2 liters of oxygen. No jugular venous distention (JVD). No thyromegaly. Moist mucous membranes. Lungs: Diminished with bibasal crackles. Heart: S1, S2, sinus rhythm. No murmurs, rubs, or gallops. Abdomen: Soft, nontender, nondistended. Extremities: No cyanosis, clubbing, or pitting edema. White count 9.9, hemoglobin 13, hematocrit 45, platelet count 182, sodium 141, potassium 4.2, chloride 94, bicarbonate 42, BUN 28, creatinine 1.25, glucose 119. ASSESSMENT AND PLAN: This is a 83-year-old female who lives at home with hypertension, hyperlipidemia, and cancer who presented with shortness of breath found to have a community acquired pneumonia with acute hypoxia with oxygen saturation of 73% currently on 2 liters of oxygen. Chest x-ray shows opacification at the right costophrenic angle. IMPRESSION: 1. Community acquired pneumonia. Currently on ceftriaxone, azithromycin and will be transitioned to oral Levaquin renal dosing. 2. Hypertension. Currently with stable blood pressure 116 to 124 systolic. On Bystolic 10 daily. 3. History of breast cancer. On chronic Tamoxifen. Currently on heparin subcutaneous. 4. Dyslipidemia. On chronic Lipitor. 5. Allergic rhinitis. Start on Zyrtec. 6. Postinfectious cough. Mucinex for comfort. MTDD
[2019-08-18 14:00] VITALS: BP 124/97
[2019-08-18] MEDS: ATORVASTATIN 20 MG TAB PO SCH (21:50)
[2019-08-18 22:00] VITALS: BP 129/67
[2019-08-19] MEDS: IPRATROPIUM 0.5MG/ALBUTEROL 2.5MG INH SOL UD 3ML (DUONEB)(J7620) INH SCH ×6 (04:16→23:46)
[2019-08-19 06:00] VITALS: BP 142/76
[2019-08-19] MEDS: SYMBICORT 160/4.5MCG INHALER 6GM INH SCH ×2 (07:27→18:02)
[2019-08-19] MEDS: HumaLOG INSULIN (NovoLOG) PER UNIT SC SCH ×4 (07:30→20:45)
[2019-08-19] MEDS: VITAMIN E 400 INTERNATIONAL UNITS CAP PO SCH (08:15)
[2019-08-19] MEDS: FUROSEMIDE 20 MG TAB PO SCH (08:15)
[2019-08-19] MEDS: guaiFENesin ER 600 MG TAB PO SCH ×2 (08:15→20:46)
[2019-08-19] MEDS: NEBIVOLOL 5 MG TAB (BYSTOLIC) PO SCH (08:15)
[2019-08-19] MEDS: ASPIRIN 325 MG TAB PO SCH (08:15)
[2019-08-19] MEDS: VITAMIN D 1,000 INTERNATIONAL UNITS TABLET PO SCH (08:15)
[2019-08-19] MEDS: predniSONE 20 MG TAB PO SCH (08:16)
[2019-08-19] MEDS: TAMOXIFEN CITRATE 10 MG TAB PO SCH (08:16)
[2019-08-19] MEDS: CETIRIZINE (ZyrTEC) 10 MG TAB PO SCH (08:16)
[2019-08-19] MEDS: HEPARIN SOD (PORCINE) 5000 UNITS/ML VIAL (J1644 PER 1000UNITS) SC SCH ×2 (08:16→20:45)
[2019-08-19] MEDS ORDERED: FURO20TA2 PO (08:31)
[2019-08-19] MEDS ORDERED: LEVA750T7 PO (08:31)
[2019-08-19 09:15] LABS: BASO % 0.2 % (0.0-1.0); EOS # 0.1 10^3/uL (0.0-0.5); EOS % 0.7 % (0.0-3.0); HEMATOCRIT 47.4 % (36.0-47.0); HEMOGLOBIN 14.6 g/dl (12.0-15.5); LYMPH # 1.6 10^3/uL (1.5-5.0); LYMPH % 17.6 % (24.0-44.0); MEAN CORPUSCULAR HEMOGLOBIN 31.1 pg (27.0-33.0); MEAN CORPUSCULAR HGB CONC 30.8 g/dl (32.0-36.5); MEAN CORPUSCULAR VOLUME 101.1 fl (80.0-96.0); MONO # 0.9 10^3/uL (0.0-0.8); MONO % 9.9 % (0.0-5.0); NEUTROPHILS # 6.2 10^3/uL (1.5-8.5); NEUTROPHILS % 69.3 % (36.0-66.0); PLATELET COUNT, AUTOMATED 185 10^3/uL (150-450); RED BLOOD COUNT 4.69 10^6/uL (4.00-5.40); WHITE BLOOD COUNT 8.9 10^3/uL (4.0-10.0)
--- NOTE | 2019-08-19 09:16 | REP ---
Portable chest, 08:51 a.m., single AP view with the patient sitting: Comparison is the portable chest of 08/14/2019. The opacification in the right costophrenic angle on the prior study has resolved. Lung lemus are clear. Cardiac size is enlarged, unchanged. The rona and mediastinum are unremarkable. Left shoulder arthroplasty, unchanged. Impression: No acute cardiopulmonary findings. Electronically Signed by Michael Jensen MD 08/19/2019 09:07 A
[2019-08-19 09:53] LABS: BLOOD UREA NITROGEN 31 MG/DL (7-18); CALCIUM LEVEL 8.7 MG/DL (8.8-10.2); CARBON DIOXIDE LEVEL 41 MEQ/L (21-32); CHLORIDE LEVEL 92 MEQ/L (98-107); CK-MB VALUE MASS < 1.0 NG/ML (<3.6); CPK CREATINE PHOSPHOKINASE 57 U/L (26-192); CREATININE FOR GFR 1.47 MG/DL (0.55-1.30); GLOMERULAR FILTRATION RATE 36.1 (>32); GLUCOSE, FASTING 133 MG/DL (70-100); MB/CK RELATIVE INDEX 1.75 (< OR =4); NT-PRO BNP 577 PG/ML (<450); POTASSIUM SERUM 3.8 MEQ/L (3.5-5.1); SODIUM LEVEL 139 MEQ/L (136-145); TROPONIN I < 0.02 NG/ML (< 0.10)
--- NOTE | 2019-08-19 12:43 | IPN ---
DATE OF SERVICE: 08/19/2019 Patient continues to complain of generalized weakness and fatigue. Still with a cough which is nonproductive. She still feels hypoxic, although is 92-95% on room air. is worried about her being discharged due to increasing weakness and not back to baseline strength. Patient is awaiting clearance from physical therapy. She is afebrile. No chills. No nausea or vomiting, headache. No sore throat. VITAL SIGNS: Temperature 97.8, pulse 77, respiratory rate 18, blood pressure 142/76, 90% 2 liters nasal cannula. Generally, patient is awake, alert, oriented to person, place and time, answering questions appropriately. She has no use of accessory respiratory muscles. Able to speak in full sentences. No jugular venous distention (JVD). No thyromegaly. Lungs diminished with bilateral crackles. Heart: S1, S2, sinus rhythm. Abdomen is soft, nontender, nondistended. Extremities trace edema bilaterally. INPUT/OUTPUT: Input 930, output 1150, negative 220. Current weight is 66.1 kg. LABORATORY DATA: White count 6.9, hemoglobin 14, hematocrit 47, platelet count 185. Sodium 139, potassium 3.8, chloride 92, bicarbonate 41, BUN 31, creatinine 1.4, glucose of 133. Patient's baseline creatinine is 2.3. MICROBIOLOGY: Blood culture negative after 72 hours. CHEST X-RAY 08/19/2019: No acute cardiopulmonary findings. Lung lemus are clear. ASSESSMENT AND PLAN: This is an 83-year-old female, who lives at home her , with hypertension, hyperlipidemia, who has cancer on tamoxifen, presented with shortness of breath, found to have community-acquired pneumonia with acute hypoxia with oxygen saturation 73%, currently requiring 2 liters of oxygen. Chest x-ray shows opacification at the right costophrenic angle. IMPRESSION: 1. Acute hypoxia secondary to community-acquired pneumonia. Patient is currently on oral Levaquin to complete a full 7 day course from admission. 2. Acute kidney injury secondary to Lasix and overdiuresis. Change to daily dose of Lasix 20 mg daily. 3. History of breast cancer, on chronic tamoxifen, suspicious for possible pulmonary embolism (PE). Check V/Q scan. 4. Acute hypoxic respiratory failure requiring 2 liters of oxygen by nasal cannula most likely secondary to pneumonia. Rule out PE due to a history of breast cancer and current tamoxifen use increases hypercoagulable state. 5. Debility. Await physical therapy (PT) clearance. Continue with alternate level of care (ALC) status for now until patient is back to her normal strength. MTDD
--- NOTE | 2019-08-19 14:47 | REP ---
Radionuclide pulmonary ventilation / perfusion scan: The study is performed with 1.0 mCi of technetium 99m DTPA aerosol followed by 5.4 mCi of technetium 99m MAA intravenously. The patient is hypoxic and is on tamoxifen. There is precipitation radiotracer within the large airways on the ventilation phase, compatible with chronic lung disease. There are matched ventilation / perfusion defects. No mismatched defects are identified. Impression: Low probability of pulmonary embolus. Electronically Signed by Michael Jensen MD 08/19/2019 02:38 P
[2019-08-19] MEDS: ATORVASTATIN 20 MG TAB PO SCH (20:46)
[2019-08-19 23:46] VITALS: O2SAT 97
[2019-08-20 03:23] VITALS: O2SAT 98
[2019-08-20] MEDS: IPRATROPIUM 0.5MG/ALBUTEROL 2.5MG INH SOL UD 3ML (DUONEB)(J7620) INH SCH ×2 (03:23→07:56)
[2019-08-20] MEDS: LevoFLOXacin 750 MG TABLET PO SCH (05:45)
[2019-08-20 06:00] VITALS: BP 140/72
[2019-08-20] MEDS: HumaLOG INSULIN (NovoLOG) PER UNIT SC SCH (07:27)
[2019-08-20] MEDS: SYMBICORT 160/4.5MCG INHALER 6GM INH SCH (07:55)
[2019-08-20 09:48] VITALS: BP 140/72
[2019-08-20] MEDS: VITAMIN E 400 INTERNATIONAL UNITS CAP PO SCH (09:48)
[2019-08-20] MEDS: ASPIRIN 325 MG TAB PO SCH (09:48)
[2019-08-20] MEDS: guaiFENesin ER 600 MG TAB PO SCH (09:48)
[2019-08-20] MEDS: NEBIVOLOL 5 MG TAB (BYSTOLIC) PO SCH (09:48)
[2019-08-20] MEDS: CETIRIZINE (ZyrTEC) 10 MG TAB PO SCH (09:48)
[2019-08-20] MEDS: VITAMIN D 1,000 INTERNATIONAL UNITS TABLET PO SCH (09:48)
[2019-08-20] MEDS: HEPARIN SOD (PORCINE) 5000 UNITS/ML VIAL (J1644 PER 1000UNITS) SC SCH (09:49)
[2019-08-20] MEDS: TAMOXIFEN CITRATE 10 MG TAB PO SCH (09:49)
[2019-08-20 14:03] LABS: BODY FLUID CULTURE Not indicated. (.); LEGIONELLA ANTIGEN URINE Negative (Negative); ORGANISM ID Not indicated. (.); SPECIMEN SOURCE Urine (.); URINE STREP PNEUMONIAE ANTIGEN Negative (Negative)
--- NOTE | 2019-08-20 19:53 | DSES ---
DATE OF ADMISSION: 08/14/2019 DATE OF DISCHARGE: 08/20/2019 PRIMARY DISCHARGE DIAGNOSES: 1. Acute hypoxia secondary to community acquired pneumonia. 2. Community acquired pneumonia. 3. Acute kidney injury due to Lasix and overdiuresis. 4. History of breast cancer, on chronic Tamoxifen. 5. Pulmonary embolism has been ruled out. 6. History of hypertension. 7. History of hyperlipidemia. 8. History of breast cancer. 9. Chronic kidney disease stage III. DISCHARGE MEDICATIONS: - Lasix 200 mg daily - Levaquin 250 mg every 2 days - Tylenol 650 mg at night as needed for pain - albuterol two puffs inhaled four times a day - aspirin 325 mg daily - atorvastatin 20 mg at night - calcium carbonate 600 mg daily - vitamin D 1000 units daily - fluticasone - Breo Ellipta one puff inhaled daily - Bystolic 10 mg daily - Tamoxifen 20 mg daily - vitamin E 400 units daily DISCONTINUED MEDICATIONS: - Cipro 500 mg twice a day DISCHARGE INSTRUCTIONS: The patient is to have followup with her primary care provider within 7 days of hospital discharge. Return to the emergency room if fever, recurrent shortness of breath or recurrent cough. HISTORY OF PRESENT ILLNESS: This is an 83-year-old female who lives at home with her with a history of hypertension, hyperlipidemia, breast cancer on chronic Tamoxifen, presented to the emergency room with worsening shortness of breath and productive cough of white sputum. The patient was afebrile at 99.1 on arrival. She had a normal white count of 10. Chest x-ray on 08/14/2019 showed new opacification of the right costophrenic angle, previous right upper lobe infiltrate has resolved. The patient was admitted for acute hypoxia with oxygen saturation of 73% on room air. The patient was given nebulizer treatments, ceftriaxone and azithromycin, along with oral prednisone 40 mg. She was also kept on Lasix 20 mg twice a day. She was diuresed with net negative balance for the past 5 days. Admission weight was 66 kg and discharge weight was 63.3 kg. Electrocardiogram (EKG) on arrival in the emergency room showed right ventricular conduction delay, sinus rhythm, ventricular rate of 63. Cardiac markers were negative. The patient had symptomatic improvement and was discharged in stable condition after passing a home safety evaluation. PHYSICAL EXAMINATION: On discharge: Temperature 98, pulse 65, respiratory rate 18, blood pressure 140/72, 99% on 2 liters nasal cannula. GENERAL: The patient is awake, alert, oriented, answering questions appropriately. Anicteric sclerae. No jaundice. Able to speak in full sentences. No jugular venous distention (JVD), thyromegaly. THe patient has no cervical lymphadenopathy. No conversational dyspnea. The patient is able to speak fluently. Face is symmetric. LUNGS: Diminished with coarse rhonchi. Air entry is equal. HEART: S1, S2. Sinus rhythm. ABDOMEN: Soft, obese, nontender, nondistended. Positive bowel sounds times four quadrants. No rebound or guarding. EXTREMITIES: Positive 1+ pitting edema. IMAGING STUDIES: V/Q scan with low probability of pulmonary embolism. Chest x-ray on 08/14/2019 showed no opacification of the right costophrenic angle, previous right upper lobe infiltrate has resolved. Blood culture negative. Respiratory panel on 08/14/2019 was negative. LABORATORY DATA: On discharge: White count 8.9, hemoglobin 14, hematocrit 47, platelet count 185. Sodium 139, potassium 3.8, chloride 92, bicarbonate 41, BUN 31, creatinine 1.47, glucose of 133. Time spent on discharge: 30 minutes. MTDD
== END 2019-08-20 12:00 | disposition home health service (06) | DRG 193 ==
LOC: M ED 11:09 → M ED INP 14:25 → ENRESERVTM 14:42 → ENRESERVDT 14:42 → M MSPAV 15:13
PROVIDERS: ADMIT Internal Medicine; ATTEND General Practice
DX: J18.9 Pneumonia, unspecified organism (principal); J96.01 Acute respiratory failure with hypoxia; I26.99 Other pulmonary embolism without acute cor pulmonale; N17.9 Acute kidney failure, unspecified; I12.9 Hypertensive chronic kidney disease with stage 1 through stage 4 chronic kidney disease, or unspecified chronic kidney disease; E78.5 Hyperlipidemia, unspecified; N18.3 Chronic kidney disease, stage 3 (moderate); R73.9 Hyperglycemia, unspecified; E87.5 Hyperkalemia; Z79.899 Other long term (current) drug therapy; Z85.3 Personal history of malignant neoplasm of breast; Z79.82 Long term (current) use of aspirin; Z88.2 Allergy status to sulfonamides; Z88.8 Allergy status to other drugs, medicaments and biological substances; Z98.41 Cataract extraction status, right eye; Z98.42 Cataract extraction status, left eye; Z79.890 Hormone replacement therapy; Z85.828 Personal history of other malignant neoplasm of skin; J30.9 Allergic rhinitis, unspecified; Z72.3 Lack of physical exercise

== ENCOUNTER → 2019-09-02 | Outpatient (REF) | payer MEDICARE, BC, OTHER ==
[~2019-09-02] MED LIST changes: +CIPR-249 PO; +FURO20TA2 PO; +LEVA750T7 PO; +PROAAER10 INH; +TYLE650T38 PO; +VITA100054 PO
== END ==
LOC: M WHC 16:54
PROVIDERS: ATTEND Nurse Practitioner Women's Health
DX: Z12.4 Encounter for screening for malignant neoplasm of cervix (principal); N95.8 Other specified menopausal and perimenopausal disorders
CPT/HCPCS: 87624; G0123

== ENCOUNTER → 2019-09-02 | Outpatient (CLI) | payer MEDICARE, BC, OTHER ==
--- NOTE | 2019-09-02 10:54 | REP ---
Clinical: Pelvic pain with history of breast cancer. Tamoxifen use. Technique: Transabdominal pelvic ultrasound followed by transvaginal examination for better evaluation of the endometrium and adnexa. Findings: Bladder is collapsed. Heterogeneous anteverted uterus measures 5.1 x 2.2 x 2.9 cm. Endometrial complex is thickened to 8 mm and demonstrates cystic changes which may be related to tamoxifen use. The bilateral ovaries were not visualized on either transabdominal or transvaginal images. No pelvic fluid or adnexal mass lesion. Impression: Heterogeneous cystic changes to the endometrium measuring 8 mm thickness.
--- NOTE | 2019-09-02 13:20 | REPMRS ---
Patient History The patient states she had a clinical breast exam in December 2018. Patient is postmenopausal, has history of cancer in the left breast at age 82, has history of other cancer at age 64, had previous chemotherapy at age 2, and is nulliparous. Family history of ovarian cancer in sister, breast cancer under age 50 in niece, prostate cancer in brother, colorectal cancer at age 50 or over in niece. Malignant ultrasound-guided core biopsy of the left breast, September 05, 2017. Radiation therapy of the left breast, 2018. 3 benign cyst aspirations of the left breast. Taking tamoxifen for 2 years. Digital Woman Screen Mammo: September 02, 2019 - Exam #: [id number] Bilateral CC and MLO view(s) were taken. Technologist: Tiff Arango, Technologist Prior study comparison: August 30, 2018, bilateral digital woman screen mammo performed at [facility]. August 29, 2017, digital woman screen mammo performed at [facility]. March 23, 2016, digital woman screen mammo performed at [facility]. FINDINGS: The breast tissue is heterogeneously dense. This may lower the sensitivity of mammography. There are post treatment changes in the left breast. There is a moderate amount of heterogeneously dense fibroglandular tissue which is fairly symmetric. There is no interval development of dominant mass, architectural distortion, or grouped microcalcification typical of malignancy. There has been no change in the appearance of the mammogram from the prior studies. 3-D tomosynthesis shows no additional findings. Assessment: BI-RADS/ACR category 2 mammogram. Benign Findings. Recommendation Routine screening mammogram of both breasts in 1 year (for women over age 40). This mammogram was interpreted with the aid of an FDA-approved computer-aided dectection system. Electronically Signed By: Robby Duran MD 09/02/19 [id number]
== END ==
LOC: M WHC 10:02
PROVIDERS: ATTEND Nurse Practitioner Women's Health
DX: Z12.31 Encounter for screening mammogram for malignant neoplasm of breast (principal); Z85.3 Personal history of malignant neoplasm of breast; Z80.41 Family history of malignant neoplasm of ovary; Z79.810 Long term (current) use of selective estrogen receptor modulators (SERMs); Z78.0 Asymptomatic menopausal state; Z92.21 Personal history of antineoplastic chemotherapy; Z80.42 Family history of malignant neoplasm of prostate; Z92.3 Personal history of irradiation; Z92.29 Personal history of other drug therapy; Z12.4 Encounter for screening for malignant neoplasm of cervix; N95.8 Other specified menopausal and perimenopausal disorders
CPT/HCPCS: 76830; 76856; 77063; 77067; 87624; G0101; G0123

== ENCOUNTER → 2019-12-13 | Outpatient (CLI) | payer MEDICARE, BC, OTHER ==
[~2019-12-13] MED LIST changes: +VITAD1000T PO
== END ==
LOC: M LABSMTC 08:06
PROVIDERS: ATTEND Anesthesiology
DX: Z01.818 Encounter for other preprocedural examination (principal); Z11.59 Encounter for screening for other viral diseases
CPT/HCPCS: C9803; U0003

== ENCOUNTER 2019-12-16 09:02 | Day surgery (SDC) | payer MEDICARE, BC, OTHER ==
[~2019-12-16] VITALS: Ht 160 cm; Wt 64.9 kg
[~2019-12-16 09:02] MED LIST changes: +LIDOCAINE 1% MDV 20ML VIAL SQ PRN; +LR 1,000 ML IV ONE; +MIDAZOLAM INJ 2MG/2ML VIAL (J2250 PER 1MG) As Ordered ONE; +ONDANSETRON 4MG/2ML VIAL As Ordered ONE; +dexameTHASONE 4 MG/ML 1ML VIAL (J1100 PER 1MG) As Ordered ONE; +fentaNYL 100 MCG/2 ML INJECTION (J3010) As Ordered ONE
[2019-12-16] MEDS ORDERED: LIDOCAINE 2% 100MG/5ML SDV (FOR ANES.) As Ordered ONE (09:07)
[2019-12-16 09:32] LABS: HEMATOCRIT 42.2 % (36.0-47.0); HEMOGLOBIN 13.2 g/dl (12.0-15.5); MEAN CORPUSCULAR HEMOGLOBIN 32.3 pg (27.0-33.0); MEAN CORPUSCULAR HGB CONC 31.3 g/dl (32.0-36.5); MEAN CORPUSCULAR VOLUME 103.2 fl (80.0-96.0); PLATELET COUNT, AUTOMATED 142 10^3/uL (150-450); RED BLOOD COUNT 4.09 10^6/uL (4.00-5.40); WHITE BLOOD COUNT 7.5 10^3/uL (4.0-10.0)
[2019-12-16] MEDS ORDERED: ALBUTEROL SULFATE 2.5 MG/0.5 ML INH NEB SOLN As Ordered ONE (10:02)
[2019-12-16] MEDS ORDERED: ALBUTEROL SULFATE 2.5 MG/0.5 ML INH NEB SOLN INH ONE (10:15)
[2019-12-16] MEDS ORDERED: PHENYLephrine HCL 500 MCG/5 ML (100MCG/ML) SYRINGE (J2370) As Ordered ONE (10:53)
[2019-12-16] MEDS ORDERED: ePHEDrine SULFATE 25 MG/5 ML(5MG/ML) SYRINGE As Ordered ONE (10:53)
[2019-12-16] MEDS ORDERED: ACETAMINOPHEN 1000MG 100ML IV BTL (OFIRMEV) (J0131 PER 10MG) As Ordered ONE (10:54)
[2019-12-16] MEDS ORDERED: ONDANSETRON 4MG/2ML VIAL IV PRN (11:30)
[2019-12-16] MEDS ORDERED: LR 1,000 ML IV SCH ×2 (11:30)
[2019-12-16] MEDS ORDERED: HYDROMORPHONE HCL 0.5 MG/ 0.5 ML SYRINGE (J1170 PER 1) IV PRN (11:30)
[2019-12-16] MEDS ORDERED: oxyCODONE 5MG TAB PO PRN (11:30)
[2019-12-16] MEDS ORDERED: fentaNYL 100 MCG/2 ML INJECTION (J3010) IV PRN (11:30)
[2019-12-16 13:26] VITALS: BP 148/67
--- NOTE | 2019-12-22 11:27 | RO ---
DATE OF PROCEDURE: 12/16/2019 PREPROCEDURE DIAGNOSIS: Postmenopausal bleeding. POSTPROCEDURE DIAGNOSIS: Postmenopausal bleeding. PROCEDURE: Hysteroscopy, dilation and curettage. SURGEON: Dr. Evelio Mckenna FIELD PLACEMENT DIRECTOR: ANESTHESIA: LMA. ESTIMATED BLOOD LOSS: 10 mL. URINE OUTPUT: 50 mL. FINDINGS: Two small endometrial polyps. Otherwise normal appearing endometrial cavity. DESCRIPTION OF PROCEDURE: The patient was taken to the operating room where LMA anesthesia was induced. She was prepped and draped in sterile fashion in the dorsal lithotomy position. The bladder was emptied with a catheter. A speculum was placed in the vagina. The anterior lip of the cervix was grasped with a tenaculum. The cervix was dilated with tapered dilators. A diagnostic hysteroscope using normal saline as a distention media was placed through the internal os. Visualization of the endometrial cavity revealed the findings noted above. The scope was removed. Sharp curettage was performed. Polyp forceps were used to grasp the polyps. The hysteroscope was reintroduced and there was no evidence of further polyps. The uterine cavity was deemed to be empty. All instruments were Sponge and instrument counts were correct. The patient went to the recovery room in stable condition.
[2019-12-22] MEDS ORDERED: TAMO20TA8 PO (14:45)
== END 2019-12-16 13:40 | disposition home or self-care (01) ==
LOC: M SDC 09:02
PROVIDERS: ATTEND Specialist
CPT/HCPCS: 36415; 58558; 85027; 88304; J0131; J1100; J2250; J2370; J2405; J3010

== ENCOUNTER → 2019-12-29 | Outpatient (CLI) | payer MEDICARE, BC, OTHER ==
[~2019-12-29] MED LIST changes: -LIDOCAINE 1% MDV 20ML VIAL SQ PRN; -LR 1,000 ML IV ONE; -MIDAZOLAM INJ 2MG/2ML VIAL (J2250 PER 1MG) As Ordered ONE; -ONDANSETRON 4MG/2ML VIAL As Ordered ONE; -dexameTHASONE 4 MG/ML 1ML VIAL (J1100 PER 1MG) As Ordered ONE; -fentaNYL 100 MCG/2 ML INJECTION (J3010) As Ordered ONE
[2019-12-29 09:11] LABS: BASO # 0.1 10^3/uL (0.0-0.2); BASO % 0.7 % (0.0-1.0); EOS # 0.3 10^3/uL (0.0-0.5); EOS % 3.5 % (0.0-3.0); HEMATOCRIT 46.2 % (36.0-47.0); HEMOGLOBIN 14.1 g/dl (12.0-15.5); LYMPH # 1.5 10^3/uL (1.5-5.0); LYMPH % 19.7 % (24.0-44.0); MEAN CORPUSCULAR HEMOGLOBIN 31.3 pg (27.0-33.0); MEAN CORPUSCULAR HGB CONC 30.5 g/dl (32.0-36.5); MEAN CORPUSCULAR VOLUME 102.4 fl (80.0-96.0); MONO # 0.8 10^3/uL (0.0-0.8); MONO % 11.1 % (0.0-5.0); NEUTROPHILS # 4.8 10^3/uL (1.5-8.5); NEUTROPHILS % 64.3 % (36.0-66.0); PLATELET COUNT, AUTOMATED 186 10^3/uL (150-450); RED BLOOD COUNT 4.51 10^6/uL (4.00-5.40); WHITE BLOOD COUNT 7.4 10^3/uL (4.0-10.0)
[2019-12-29 09:36] LABS: BILIRUBIN,TOTAL 0.3 MG/DL (0.2-1.0); CALCIUM LEVEL 8.5 MG/DL (8.8-10.2); CREATININE FOR GFR 1.33 MG/DL (0.55-1.30); GLOMERULAR FILTRATION RATE 40.4 (>32); POTASSIUM SERUM 4.4 MEQ/L (3.5-5.1); TOTAL PROTEIN 6.3 GM/DL (6.4-8.2)
== END ==
LOC: M LAB 08:03
PROVIDERS: ATTEND Internal Medicine Hematology & Oncology
DX: C50.912 Malignant neoplasm of unspecified site of left female breast (principal)

== ENCOUNTER → 2020-09-14 | Outpatient (CLI) | payer MEDICARE, BC, OTHER ==
[~2020-09-14] MED LIST changes: +D31000TA2 PO; +OCUVTAB4 PO; +OSTE1TAB2 PO; -VITAD1000T PO
--- NOTE | 2020-09-14 12:36 | REPMRS ---
Patient History The patient states she had a clinical breast exam in . Patient is postmenopausal, has history of cancer in the left breast at age 82, had previous chest radiation therapy at age 64, has history of other cancer at age 64, had previous chemotherapy at age 2, and is nulliparous. Family history of ovarian cancer in sister, breast cancer under age 50 in niece, prostate cancer in brother, colorectal cancer at age 50 or over in niece. Malignant ultrasound-guided core biopsy of the left breast, September 05, 2017. Radiation therapy of the left breast, 2018. 3 benign cyst aspirations of the left breast. Taking tamoxifen for 3 years. 3D TOMOSYNTHESIS WAS PERFORMED. Volpara breast density c . Digital Woman Screen Mammo: September 14, 2020 - Exam #: [id number] Bilateral CC and MLO view(s) were taken. Technologist: Ondina Fenton, Technologist Prior study comparison: September 02, 2019, bilateral digital woman screen mammo performed at [facility]. August 30, 2018, bilateral digital woman screen mammo performed at [facility]. FINDINGS: The breast tissue is heterogeneously dense. This may lower the sensitivity of mammography. There is a fairly symmetric fibroglandular pattern in both breasts. There has been no interval development of masses, areas of architectural distortion or clusters of microcalcifications typical of malignancy. Stable post-treatment changes are seen in the left breast. Large coarse benign appearing calcifications are present. No significant changes when compared with prior studies. Assessment: BI-RADS/ACR category 2 mammogram. Benign Findings. Recommendation Routine screening mammogram in 1 year (for women over age 40). This mammogram was interpreted with the aid of an FDA-approved computer-aided dectection system. Electronically Signed By: Michael Coyne MD 09/14/20 [id number]
== END ==
LOC: M WHC 11:07
PROVIDERS: ATTEND Nurse Practitioner Women's Health
DX: Z01.419 Encounter for gynecological examination (general) (routine) without abnormal findings (principal); Z12.31 Encounter for screening mammogram for malignant neoplasm of breast; Z85.3 Personal history of malignant neoplasm of breast; Z78.0 Asymptomatic menopausal state; Z92.3 Personal history of irradiation; Z92.21 Personal history of antineoplastic chemotherapy; Z80.41 Family history of malignant neoplasm of ovary; Z80.0 Family history of malignant neoplasm of digestive organs; Z92.29 Personal history of other drug therapy
CPT/HCPCS: 77063; 77067; G0101

== ENCOUNTER → 2021-04-19 | Outpatient (CLI) | payer MEDICARE, BC, OTHER ==
--- NOTE | 2021-04-19 17:12 | REP ---
INDICATION: CHRONIC OBSTRUCTIVE PULMONARY DISEASE, UNSPECIFIED COMPARISON: 08/19/2019 TECHNIQUE: PA and lateral. FINDINGS: Cardiomegaly and diffuse chronic interstitial changes noted throughout the bilateral lung lemus. No obvious acute consolidation, effusion, or pneumothorax. Skeletal structures demonstrate osteopenia and degenerative changes. IMPRESSION: Cardiomegaly and chronic changes. No obvious acute consolidation or effusion. <Electronically signed by Gabe Quintana > 04/19/21 [id number]
== END ==
LOC: M RAD 16:41
PROVIDERS: ATTEND Internal Medicine Pulmonary Disease
DX: J44.9 Chronic obstructive pulmonary disease, unspecified (principal); I51.7 Cardiomegaly; J84.9 Interstitial pulmonary disease, unspecified

== ENCOUNTER → 2021-05-04 | Outpatient (CLI) | payer MEDICARE, BC, OTHER ==
--- NOTE | 2021-05-04 11:53 | REP ---
INDICATION: MID UPPER BACK LUMP ? LIPOMA. COMPARISON: None. TECHNIQUE: Real-time sonographic evaluation of the midline posterior along the spine over the site of a clinically palpable mass FINDINGS: There are no cystic or solid masses IMPRESSION: Negative ultrasound does not obviate further anatomical imaging with modalities such as gadolinium enhanced MRI which should be considered if clinically relevant. <Electronically signed by Elver Crane > 05/04/21 [id number]
== END ==
LOC: M WHC 11:10
PROVIDERS: ATTEND Physician Assistant Medical
DX: R22.2 Localized swelling, mass and lump, trunk (principal)

== ENCOUNTER 2021-07-07 11:57 | Emergency (ER) | payer MEDICARE, BC, OTHER ==
[~2021-07-07] VITALS: Ht 162.6 cm; Wt 61.8 kg
[2021-07-07] MEDS ORDERED: FLUT1BLS8 (12:17)
[2021-07-07] MEDS ORDERED: NEOSPORIN OINT 0.9 GM PKT TOP ONE (14:10)
[2021-07-07] MEDS ORDERED: LIDOCAINE 1% MDV 20ML VIAL SC ONE (14:10)
[2021-07-07 15:33] VITALS: BP 116/54
== END 2021-07-07 15:35 | disposition home or self-care (01) ==
LOC: M ED 11:57
DX: S01.111A Laceration without foreign body of right eyelid and periocular area, initial encounter (principal); W01.198A Fall on same level from slipping, tripping and stumbling with subsequent striking against other object, initial encounter; Y92.9 Unspecified place or not applicable; Y93.9 Activity, unspecified; Y99.9 Unspecified external cause status; Z79.82 Long term (current) use of aspirin; Z79.899 Other long term (current) drug therapy; Z88.2 Allergy status to sulfonamides; Z88.8 Allergy status to other drugs, medicaments and biological substances

== ENCOUNTER 2021-07-12 07:17 | Emergency (ER) | payer MEDICARE, BC, OTHER ==
[~2021-07-12] VITALS: Ht 160 cm; Wt 62.7 kg
[~2021-07-12 07:17] MED LIST changes: +FLUT1BLS8
[2021-07-12 08:29] VITALS: BP 152/74
== END 2021-07-12 08:45 | disposition home or self-care (01) ==
LOC: M ED 07:17
DX: Z48.02 Encounter for removal of sutures (principal); Z79.82 Long term (current) use of aspirin; Z79.899 Other long term (current) drug therapy; Z88.2 Allergy status to sulfonamides; Z88.8 Allergy status to other drugs, medicaments and biological substances

== ENCOUNTER → 2021-07-18 | Outpatient (REF) | payer MEDICARE, BC, OTHER | LOC: M LAB REF 11:07 | PROVIDERS: ATTEND Internal Medicine | DX: M70.61 Trochanteric bursitis, right hip (principal); B96.1 Klebsiella pneumoniae [K. pneumoniae] as the cause of diseases classified elsewhere; R30.0 Dysuria ==

== ENCOUNTER → 2021-08-24 | Outpatient (REF) | payer MEDICARE, OTHER, BC ==
[2021-08-24 13:24] LABS: FOLATE 14.5 NG/ML
== END ==
LOC: M LAB REF 12:27
PROVIDERS: ATTEND Internal Medicine
DX: R41.81 Age-related cognitive decline (principal)

== ENCOUNTER → 2021-09-01 | Outpatient (CLI) | payer MEDICARE, BC, OTHER | LOC: M WHC 09:32 | PROVIDERS: ATTEND Internal Medicine | DX: R93.89 Abnormal findings on diagnostic imaging of other specified body structures (principal) ==

== ENCOUNTER → 2021-09-27 | Outpatient (CLI) | payer MEDICARE, BC, OTHER ==
[~2021-09-27] MED LIST changes: -D31000TA2 PO; +VITA100093 PO
== END ==
LOC: M WHC 12:32
PROVIDERS: ATTEND Internal Medicine
DX: Z12.31 Encounter for screening mammogram for malignant neoplasm of breast (principal); M81.0 Age-related osteoporosis without current pathological fracture; M85.88 Other specified disorders of bone density and structure, other site; M85.851 Other specified disorders of bone density and structure, right thigh; Z85.3 Personal history of malignant neoplasm of breast; Z92.3 Personal history of irradiation; Z80.41 Family history of malignant neoplasm of ovary; Z80.3 Family history of malignant neoplasm of breast; Z80.42 Family history of malignant neoplasm of prostate; Z80.0 Family history of malignant neoplasm of digestive organs

== ENCOUNTER → 2021-10-25 | Outpatient (CLI) | payer MEDICARE, BC, OTHER | LOC: M SOG 11:34 | PROVIDERS: ATTEND Physician Assistant | DX: M25.532 Pain in left wrist (principal); M19.032 Primary osteoarthritis, left wrist ==

== ENCOUNTER 2021-10-29 09:08 | Inpatient (IN) | payer MEDICARE, BC, OTHER ==
[2021-10-29] VITALS (43 sets, daily range): BP systolic 83–129; BP diastolic 50–96
[~2021-10-29] VITALS: Ht 160 cm; Wt 61.3 kg
[~2021-10-29 09:08] MED LIST changes: -FLUT1BLS8; +FLUT1BLS8 INH
[2021-10-29] MEDS ORDERED: ETOMIDATE INJ 20MG/10ML VIAL IV ONE (09:35)
[2021-10-29] MEDS ORDERED: SUCCINYLCHOLINE INJ 200 MG/10 ML VIAL (J0330) IV ONE (09:35)
[2021-10-29] MEDS ORDERED: propofoL 1,000 MG in IV 1 EA IV SCH (09:35)
[2021-10-29] MEDS ORDERED: ROCURONIUM BROMIDE 50 MG/5 ML VIAL IV ONE (09:35)
[2021-10-29] MEDS ORDERED: BYST10TA2 PO (09:38)
[2021-10-29] MEDS ORDERED: PRESCAP PO (09:38)
[2021-10-29] MEDS ORDERED: ISOVUE-370 76% 100ML VIAL As Ordered ONE (09:40)
[2021-10-29 09:44] LABS: BASO # 0.1 10^3/uL (0.0-0.2); BASO % 0.8 % (0.0-1.0); EOS # 0.3 10^3/uL (0.0-0.5); HEMATOCRIT 56.1 % (36.0-47.0); HEMOGLOBIN 16.8 g/dl (12.0-15.5); LYMPH # 4.9 10^3/uL (1.5-5.0); LYMPH % 33.2 % (24.0-44.0); MEAN CORPUSCULAR HEMOGLOBIN 32.7 pg (27.0-33.0); MEAN CORPUSCULAR HGB CONC 29.9 g/dl (32.0-36.5); MEAN CORPUSCULAR VOLUME 109.4 fl (80.0-96.0); MONO # 1.2 10^3/uL (0.0-0.8); MONO % 8.3 % (2.0-8.0); NEUTROPHILS % 54.4 % (36.0-66.0); PLATELET COUNT, AUTOMATED 162 10^3/uL (150-450); RED BLOOD COUNT 5.13 10^6/uL (4.00-5.40); WHITE BLOOD COUNT 14.7 10^3/uL (4.0-10.0)
[2021-10-29] MEDS ORDERED: FUROSEMIDE 40MG/4ML VIAL (J1940) As Ordered ONE (09:47)
[2021-10-29] MEDS ORDERED: FUROSEMIDE 40MG/4ML VIAL (J1940) IV ONE (09:50)
[2021-10-29 10:10] LABS: CALCIUM LEVEL 8.4 MG/DL (8.8-10.2); CREATININE FOR GFR 1.71 MG/DL (0.55-1.30); GLOMERULAR FILTRATION RATE 30.1 (>32); POTASSIUM SERUM 4.7 MEQ/L (3.5-5.1)
[2021-10-29] MEDS ORDERED: NOREPINEPHRINE BITARTRATE 8 MG in D5W 492 ML IV SCH (10:50)
[2021-10-29] MEDS: MIDAZOLAM 5MG/ML 1ML VIAL (J2250 PER 1MG) IV PRN ×2 (11:11→11:43)
[2021-10-29] MEDS ORDERED: CEFEPIME HCL 2 GM in D5W MINI-BAG PLUS 50 ML IV ONE (11:25)
[2021-10-29] MEDS ORDERED: ALBUTEROL SULFATE 2.5 MG/0.5 ML INH NEB SOLN NEB PRN (12:05)
[2021-10-29] MEDS: MIDAZOLAM INJ 2MG/2ML VIAL (J2250 PER 1MG) IV PRN (12:21)
[2021-10-29] MEDS: MIDAZOLAM HCL 100 MG in D5W 80 ML IV SCH (12:38)
[2021-10-29] MEDS: fentaNYL 100 MCG/2 ML INJECTION IV PRN (12:59)
[2021-10-29 13:11] LABS: INR 1.03; PROTHROMBIN TIME 13.9 SECONDS (12.7-14.5)
[2021-10-29 13:12] LABS: PARTIAL THROMBOPLASTIN TIME 30.9 SECONDS (25.9-37.0)
[2021-10-29] MEDS ORDERED: ALBU8.5H INH (13:24)
[2021-10-29] MEDS ORDERED: HOME MED LIST COMPLETE! XX SCH (13:25)
[2021-10-29] MEDS ORDERED: HEPARIN SOD (PORCINE) 5000UNITS/ML 1ML VIAL/SYRINGE SC SCH (14:00)
[2021-10-29] MEDS: FUROSEMIDE injection 250 MG in D5W 225 ML IV SCH (14:27)
[2021-10-29] MEDS: NOREPINEPHRINE BITARTRATE 8 MG in D5W 492 ML IV SCH (14:30)
[2021-10-29] MEDS: IPRATROPIUM HFA INHALER 12.9 GRAMS (ATROVENT HFA) INH SCH ×2 (14:32→19:29)
[2021-10-29 14:35] LABS: ABG BASE EXCESS -4.9 (-2.0-2.0); ABG HCO3 20.7 MEQ/L (22.0-26.0); ABG O2 SATURATION 99.4 % (95.0-99.0); ABG PARTIAL PRESSURE CO2 40.1 mmHg (35.0-45.0); ABG PARTIAL PRESSURE O2 205.7 mmHg (75.0-100.0); ABG STANDARD HCO3 20.6 MEQ/L (22.0-26.0); ABG TOTAL CO2 21.9 MEQ/L (23.0-31.0)
[2021-10-29] MEDS: ASPIRIN 325 MG TAB GT SCH (14:37)
[2021-10-29] MEDS: PANTOPRAZOLE 40MG VIAL IV SCH (14:38)
[2021-10-29] MEDS: CHLORHEXIDINE GLUCONATE 0.12 % 15ML UDC (PERIDEX ORAL RINSE) MT SCH ×2 (14:38→20:19)
[2021-10-29] MEDS ORDERED: HEPARIN SOD (PORCINE) 5000UNITS/ML 1ML VIAL/SYRINGE IV PRN (14:45)
[2021-10-29] MEDS ORDERED: HEPARIN SOD (PORCINE) 5000UNITS/ML 1ML VIAL/SYRINGE IV ONE (14:45)
[2021-10-29] MEDS: HEPARIN DRIP 25,000 UNITS in IV 1 EA IV SCH (16:12)
[2021-10-29] MEDS: VANCOMYCIN HCL 1,000 MG, VIAL MATE ADAPTER 1 EACH in NS 250 ML IV SCH (18:52)
[2021-10-29] MEDS: SYMBICORT 160/4.5MCG INHALER 6GM INH SCH (19:28)
[2021-10-29] MEDS: ATORVASTATIN 20 MG TAB PO SCH (20:18)
[2021-10-30] VITALS (84 sets, daily range): BP systolic 85–139; BP diastolic 50–77
[2021-10-30] MEDS: IPRATROPIUM HFA INHALER 12.9 GRAMS (ATROVENT HFA) INH SCH ×4 (01:32→19:54)
[2021-10-30] MEDS: MIDAZOLAM INJ 2MG/2ML VIAL (J2250 PER 1MG) IV PRN ×5 (03:29→21:45)
[2021-10-30] MEDS: fentaNYL 100 MCG/2 ML INJECTION IV PRN (03:52)
[2021-10-30 05:43] LABS: ABG BASE EXCESS -2.2 (-2.0-2.0); ABG HCO3 20.6 MEQ/L (22.0-26.0); ABG PARTIAL PRESSURE CO2 30.5 mmHg (35.0-45.0); ABG PARTIAL PRESSURE O2 115.6 mmHg (75.0-100.0); ABG STANDARD HCO3 22.7 MEQ/L (22.0-26.0); ABG TOTAL CO2 21.6 MEQ/L (23.0-31.0); ABG pH (ARTERIAL) 7.448 UNITS (7.350-7.450)
[2021-10-30 05:49] LABS: HEMOGLOBIN 14.4 g/dl (12.0-15.5); MEAN CORPUSCULAR HEMOGLOBIN 32.4 pg (27.0-33.0); MEAN CORPUSCULAR HGB CONC 32.7 g/dl (32.0-36.5); MEAN CORPUSCULAR VOLUME 99.1 fl (80.0-96.0); PLATELET COUNT, AUTOMATED 143 10^3/uL (150-450); RED BLOOD COUNT 4.44 10^6/uL (4.00-5.40); WHITE BLOOD COUNT 16.4 10^3/uL (4.0-10.0)
[2021-10-30 06:44] LABS: ALBUMIN 2.6 GM/DL (3.2-5.2); BILIRUBIN,TOTAL 0.6 MG/DL (0.2-1.0); CALCIUM LEVEL 7.7 MG/DL (8.8-10.2); CREATININE FOR GFR 2.2 MG/DL (0.55-1.30); GLOMERULAR FILTRATION RATE 22.5 (>32); MAGNESIUM LEVEL 2.2 MG/DL (1.8-2.4); POTASSIUM SERUM 5.6 MEQ/L (3.5-5.1); TOTAL PROTEIN 5.3 GM/DL (6.4-8.2)
[2021-10-30] MEDS: SYMBICORT 160/4.5MCG INHALER 6GM INH SCH ×2 (07:29→19:55)
[2021-10-30] MEDS: MIDAZOLAM HCL 100 MG in D5W 80 ML IV SCH ×2 (08:08→09:00)
[2021-10-30] MEDS: CHLORHEXIDINE GLUCONATE 0.12 % 15ML UDC (PERIDEX ORAL RINSE) MT SCH ×2 (08:17→20:07)
[2021-10-30] MEDS: ASPIRIN 325 MG TAB GT SCH (08:17)
[2021-10-30] MEDS: PANTOPRAZOLE 40MG VIAL IV SCH (08:17)
[2021-10-30] MEDS ORDERED: SOD POLYSTYRENE SULFONATE SUSP 15 GM/60 ML UD PO ONE (10:00)
[2021-10-30] MEDS: VANCOMYCIN HCL 1,000 MG, VIAL MATE ADAPTER 1 EACH in NS 250 ML IV SCH (10:15)
[2021-10-30] MEDS: SENNA SYRUP 15 ML UDC PO SCH ×2 (10:21→20:07)
[2021-10-30] MEDS: NOREPINEPHRINE BITARTRATE 8 MG in D5W 492 ML IV SCH (10:22)
[2021-10-30] MEDS ORDERED: PATIROMER SORBITEX CALCIUM 8.4 GM POWDER PACKET (VELTASSA) PO ONE (11:00)
[2021-10-30] MEDS ORDERED: CEFEPIME HCL 2 GM in D5W MINI-BAG PLUS 50 ML IV SCH (12:00)
[2021-10-30] MEDS ORDERED: fentaNYL 100 MCG/2 ML INJECTION IV PRN (12:30)
[2021-10-30] MEDS: FUROSEMIDE injection 250 MG in D5W 225 ML IV SCH (14:12)
[2021-10-30 16:32] LABS: CALCIUM LEVEL 7.9 MG/DL (8.8-10.2); CREATININE FOR GFR 2.56 MG/DL (0.55-1.30); GLOMERULAR FILTRATION RATE 18.9 (>32); POTASSIUM SERUM 4.6 MEQ/L (3.5-5.1)
[2021-10-30] MEDS: HEPARIN DRIP 25,000 UNITS in IV 1 EA IV SCH (17:05)
[2021-10-30] MEDS ORDERED: HEPARIN DRIP 25,000 UNITS in IV 1 EA IV SCH (18:10)
[2021-10-30] MEDS: ATORVASTATIN 20 MG TAB PO SCH (20:07)
[2021-10-31] VITALS (16 sets, daily range): BP systolic 95–109; BP diastolic 50–55
[2021-10-31] MEDS: MIDAZOLAM INJ 2MG/2ML VIAL (J2250 PER 1MG) IV PRN (00:27)
[2021-10-31] MEDS: IPRATROPIUM HFA INHALER 12.9 GRAMS (ATROVENT HFA) INH SCH ×3 (01:50→14:00)
[2021-10-31 05:50] LABS: HEMATOCRIT 37.2 % (36.0-47.0); MEAN CORPUSCULAR HEMOGLOBIN 32.7 pg (27.0-33.0); MEAN CORPUSCULAR HGB CONC 32.5 g/dl (32.0-36.5); MEAN CORPUSCULAR VOLUME 100.5 fl (80.0-96.0); PLATELET COUNT, AUTOMATED 102 10^3/uL (150-450); WHITE BLOOD COUNT 11.9 10^3/uL (4.0-10.0)
[2021-10-31 05:53] LABS: ABG BASE EXCESS -4.5 (-2.0-2.0); ABG HCO3 20.7 MEQ/L (22.0-26.0); ABG O2 SATURATION 96.3 % (95.0-99.0); ABG PARTIAL PRESSURE CO2 38.4 mmHg (35.0-45.0); ABG PARTIAL PRESSURE O2 88.3 mmHg (75.0-100.0); ABG STANDARD HCO3 20.8 MEQ/L (22.0-26.0); ABG TOTAL CO2 21.9 MEQ/L (23.0-31.0); ABG pH (ARTERIAL) 7.349 UNITS (7.350-7.450)
[2021-10-31 05:54] LABS: HEMOGLOBIN 12.1 g/dl (12.0-15.5)
[2021-10-31] MEDS: HEPARIN SOD (PORCINE) 5000UNITS/ML 1ML VIAL/SYRINGE SQ SCH ×2 (06:00→14:32)
[2021-10-31] MEDS: MIDAZOLAM HCL 100 MG in D5W 80 ML IV SCH (06:10)
[2021-10-31 06:30] LABS: ALBUMIN 2.1 GM/DL (3.2-5.2); BILIRUBIN,TOTAL 0.4 MG/DL (0.2-1.0); CALCIUM LEVEL 7.9 MG/DL (8.8-10.2); CREATININE FOR GFR 2.83 MG/DL (0.55-1.30); GLOMERULAR FILTRATION RATE 16.8 (>32); MAGNESIUM LEVEL 2.2 MG/DL (1.8-2.4); POTASSIUM SERUM 3.9 MEQ/L (3.5-5.1); TOTAL PROTEIN 4.9 GM/DL (6.4-8.2)
[2021-10-31] MEDS: SYMBICORT 160/4.5MCG INHALER 6GM INH SCH (07:39)
[2021-10-31] MEDS: PANTOPRAZOLE 40MG VIAL IV SCH (08:07)
[2021-10-31] MEDS: SENNA SYRUP 15 ML UDC PO SCH (08:07)
[2021-10-31] MEDS: CHLORHEXIDINE GLUCONATE 0.12 % 15ML UDC (PERIDEX ORAL RINSE) MT SCH (08:07)
[2021-10-31] MEDS ORDERED: SODIUM CHLORIDE 0.9% INJ 10 ML SYR IV PRN (09:00)
[2021-10-31] MEDS ORDERED: MIRALAX *UNIT DOSE* 17GM PACKET PO SCH (09:00)
[2021-10-31] MEDS ORDERED: ASPIRIN 81 MG CHEW TABLET GT SCH (09:00)
[2021-10-31] MEDS ORDERED: VANCOMYCIN HCL 1,000 MG, VIAL MATE ADAPTER 1 EACH in NS 250 ML IV SCH (10:00)
[2021-10-31] MEDS ORDERED: CEFEPIME HCL 1 GM in D5W MINI-BAG PLUS 50 ML IV SCH (10:00)
[2021-10-31] MEDS ORDERED: dexmedeTOMidine 200 MCG in IV 1 EA IV SCH (11:55)
[2021-10-31] MEDS ORDERED: MORPHINE 2 MG/ML 1ML VIAL IV PRN ×2 (12:50→14:55)
[2021-10-31] MEDS ORDERED: SODIUM CHLORIDE 0.9% INJ 10 ML SYR IV SCH (14:00)
[2021-10-31] MEDS ORDERED: FUROSEMIDE 100MG/10ML VIAL (J1940) IV ONE (14:50)
[2021-10-31] MEDS ORDERED: SCOPOLAMINE 1MG TRANSDERMAL PATCH TOP PRN (14:55)
[2021-10-31] MEDS ORDERED: ONDANSETRON 4MG/2ML VIAL IV PRN (14:55)
[2021-10-31] MEDS: LORazepam 2 MG/ML VIAL IV PRN ×2 (15:50→18:24)
[2021-10-31] MEDS ORDERED: ETOMIDATE INJ 20MG/10ML VIAL ONE (18:49)
[2021-10-31] MEDS ORDERED: SUCCINYLCHOLINE 100 MG/5 ML SYRINGE (J0330) ONE (18:49)
[2021-10-31] MEDS ORDERED: ROCURONIUM BROMIDE 50 MG/5 ML VIAL ONE (18:49)
== END 2021-10-31 18:50 | disposition expired | DRG 208 ==
LOC: M ED 09:08 → EDBD 09:08 → M ED INP 12:01 → ENRESERV 12:40 → M ICU 13:28
PROVIDERS: ADMIT Internal Medicine Pulmonary Disease; ATTEND Internal Medicine
PROC: 5A1945Z Respiratory Ventilation, 24-96 Consecutive Hours (ICD-10-PCS; principal; 2021-10-29)
PROC: 02HV33Z Insertion of Infusion Device into Superior Vena Cava, Percutaneous Approach (ICD-10-PCS; 2021-10-29)
PROC: 0BH17EZ Insertion of Endotracheal Airway into Trachea, Via Natural or Artificial Opening (ICD-10-PCS; 2021-10-29)
DX: J96.21 Acute and chronic respiratory failure with hypoxia (principal); I21.4 Non-ST elevation (NSTEMI) myocardial infarction; J81.0 Acute pulmonary edema; E87.2 Acidosis; N17.9 Acute kidney failure, unspecified; J44.1 Chronic obstructive pulmonary disease with (acute) exacerbation; Z99.81 Dependence on supplemental oxygen; I11.0 Hypertensive heart disease with heart failure; Z85.3 Personal history of malignant neoplasm of breast; Z92.3 Personal history of irradiation; Z91.19 Patient's noncompliance with other medical treatment and regimen; Z66 Do not resuscitate; R57.0 Cardiogenic shock; J96.22 Acute and chronic respiratory failure with hypercapnia; I50.9 Heart failure, unspecified; Z20.822 Contact with and (suspected) exposure to COVID-19; Z79.899 Other long term (current) drug therapy; Z88.2 Allergy status to sulfonamides; Z88.8 Allergy status to other drugs, medicaments and biological substances; I34.0 Nonrheumatic mitral (valve) insufficiency; E87.5 Hyperkalemia; I95.9 Hypotension, unspecified; R04.0 Epistaxis